=== PATIENT | female | born 1930 | race Two or more races ===

== ENCOUNTER 2019-09-19 05:31 | Inpatient (IN) | payer MEDICARE ==
--- NOTE | 2019-09-19 06:17 | ER Document Report ---
ED General - General Chief Complaint: Fever Stated Complaint: FEVER Time Seen by Provider: 09/19/19 06:16 Primary Care Provider: WILLA ALDRICH MD [Primary Care Provider] - Follow up as needed Mode of Arrival: Medic Information source: Patient, Emergency Med Personnel Cannot obtain history due to: Uncooperative, Other - possible dementia vs cultural divide TRAVEL OUTSIDE OF THE [place] IN LAST 30 DAYS: No - HPI Onset: Other - over the last few days Onset/Duration: Gradual Quality of pain: No pain Severity: Moderate Pain Level: Denies Associated symptoms: Fever, Weakness Exacerbated by: Denies Relieved by: Denies Similar symptoms previously: No Recently seen / treated by doctor: No Notes: 89 year old female with a history of DM, HTN, HLD who lives in a assisted here for fevers and weakness. The patient is hard of hearing and not the best h istorian but she says she feels weak and has had fevers. The patient is mildly hypoxic during my exam on room air and she is febrile. Patient not actively coughing but she says it hurts to urinate. - Related Data Allergies/Adverse Reactions: No Known Allergies Allergy (Verified 09/19/19 07:45) Home Medications: amlodipine - benazepril 5-20mg po daily. asa 81mg po daily. atorvastatin 40mg po daily. hctz 25mg po daily. metformin 500mg po daily. glipizide 5mg po bid. metoprolol 100mg po bid. kcl er 20meq bid. tylenol 325mg po prn pain Past Medical History - General Information source: Emergency Med Personnel - Social History Smoking Status: Never Smoker Chew tobacco use (# tins/day): No Frequency of alcohol use: None Drug Abuse: None Lives with: Senior Living Family History: Reviewed & Not Pertinent Patient has suicidal ideation: No Patient has homicidal ideation: No - Past Medical History Cardiac Medical History: Reports: Hx Hypercholesterolemia, Hx Hypertension Endocrine Medical History: Reports: Hx Diabetes Mellitus Type 2 Physical Exam - Vital signs Vitals: Temp Pulse Resp BP Pulse Ox 102.2 F H 102 H 19 117/55 L 93 09/19/19 05:43 09/19/19 05:43 09/19/19 05:43 09/19/19 05:43 09/19/19 05:43 - Notes Notes: GENERAL: Well-appearing, well-nourished and in no acute distress. Somewhat hard of hearing. HEAD: Atraumatic, normocephalic. EYES: Pupils equal round and reactive to light, extraocular movements intact, sclera anicteric, conjunctiva are normal. ENT: TMs normal, nares patent, oropharynx clear without exudates. Moist mucous membranes. NECK: Normal range of motion, supple without lymphadenopathy or JVD. LUNGS: Breath sounds clear to auscultation bilaterally and equal. No wheezes rales or rhonchi. HEART: Regular rate and rhythm without murmurs, rubs or gallops. ABDOMEN: Soft, nontender, normoactive bowel sounds. No guarding, no rebound. No masses appreciated. EXTREMITIES: Normal range of motion, no pitting or edema. No clubbing or cyanosis. NEUROLOGICAL: Cranial nerves II through XII grossly intact. Normal speech, normal gait. PSYCH: Normal mood, normal affect. SKIN: Warm, Dry, normal turgor, no rashes or lesions noted. Course - Re-evaluation Re-evalutation: 09/19/19 08:05 The patient meets sepsis criteria and her xray was read as right middle lob pneumonia. The patient was treated with fluids (1.5L NS) and Cefipime (per Hospitalist request) to cover pneumonia and possible UTI. Patient tested negative for the flu but UA looked questionable (urine culture pending). K is slightly low so will supp with 40meq of oral K. Patient's glucose us which could be from dehydration and her infectious process. Patient treated with fluids jemma ne for this. - Vital Signs Vital signs: Temp Pulse Resp BP Pulse Ox 99.3 F 102 H 19 92/54 L 94 09/19/19 07:36 09/19/19 05:43 09/19/19 07:36 09/19/19 07:36 09/19/19 07:36 - Laboratory Result Diagrams: 09/19/19 06:06 09/19/19 06:06 Laboratory results interpreted by me: 09/19/19 09/19/19 09/19/19 06:06 06:06 06:06 WBC 3.1 L Plt Count 147 L Lymph % (Auto) 6.5 L Bledsoe % (Auto) 1.7 L Absolute Lymphs (auto) 0.2 L Seg Neutrophils % 91.4 H VBG pH Sodium 130.6 L Potassium 3.3 L Chloride 94 L Glucose 261 H Lactic Acid 2.3 H Total Bilirubin 2.1 H AST 75 H Alkaline Phosphatase 144 H Albumin 3.4 L Urine Protein Urine Glucose (UA) Urine Blood Urine Urobilinogen 09/19/19 09/19/19 06:20 06:22 WBC Plt Count Lymph % (Auto) Bledsoe % (Auto) Absolute Lymphs (auto) Seg Neutrophils % VBG pH 7.48 H Sodium Potassium Chloride Glucose Lactic Acid Total Bilirubin AST Alkaline Phosphatase Albumin Urine Protein 100 H Urine Glucose (UA) >=500 H Urine Blood LARGE H Urine Urobilinogen 4.0 H Discharge - Discharge Clinical Impression: Pneumonia Qualifiers: Pneumonia type: due to unspecified organism Laterality: right Lung location: middle lobe of lung Qualified Code(s): J18.9 - Pneumonia, unspecified organism Sepsis Qualifiers: Sepsis type: sepsis due to unspecified organism Sepsis acute organ dysfunction status: unspecified Qualified Code(s): A41.9 - Sepsis, unspecified organism Condition: Stable Disposition: ADMITTED INPATIENT Admitting Provider: Maria D (Hospitalist) Unit Admitted: Telemetry Referrals: WILLA ALDRICH MD [Primary Care Provider] - Follow up as needed
[2019-09-19 06:25] LABS: ABSOLUTE LYMPHOCYTES (AUTO) 0.2 10^3/uL (0.5-4.7); ABSOLUTE MONOCYTES (AUTO) 0.1 10^3/uL (0.1-1.4); ABSOLUTE NEUT (AUTO) 2.9 10^3/uL (1.7-8.2); BASOPHILS % (AUTO) 0.2 % (0-2); EOSINOPHILS % (AUTO) 0.2 % (0-6); HEMATOCRIT 37.1 % (36.0-47.0); HEMOGLOBIN 12.3 g/dL (12.0-15.5); LYMPHOCYTES % (AUTO) 6.5 % (13-45); MEAN CORPUSCULAR HEMOGLOBIN 28.4 pg (27.0-33.4); MEAN CORPUSCULAR HGB CONC 33.1 g/dL (32.0-36.0); MEAN CORPUSCULAR VOLUME 86 fl (80-97); MONOCYTES % (AUTO) 1.7 % (3-13); PLATELET COUNT 147 10^3/uL (150-450); RED BLOOD COUNT 4.32 10^6/uL (3.72-5.28); SEGMENTED NEUTROPHILS % (AUTO) 91.4 % (42-78); TOTAL CELLS COUNTED % (AUTO) 100 %; WHITE BLOOD COUNT 3.1 10^3/uL (4.0-10.5)
[2019-09-19 06:34] LABS: APPEARANCE,URINE SLIGHTLY-CLOUDY; BILIRUBIN,URINE NEGATIVE (NEGATIVE); COLOR,URINE AMBER; GLUCOSE, URINE >=500 mg/dL (NEGATIVE); KETONES,URINE NEGATIVE (NEGATIVE); LEUKOCYTE ESTERASE,URINE NEGATIVE (NEGATIVE); NITRITE,URINE NEGATIVE (NEGATIVE); PROTEIN,URINE 100 mg/dL (NEGATIVE); URINE SPECIFIC GRAVITY 1.014
[2019-09-19 06:35] LABS: VENOUS BLOOD BASE EXCESS 2.6 mmol/L; VENOUS BLOOD PH 7.48 (7.30-7.42)
[2019-09-19 06:40] LABS: INTERNATIONAL RATION (INR) 1.06; PROTHROMBIN TIME 13.8 SEC (11.4-15.4)
[2019-09-19] MEDS ORDERED: NORMAL SALINE 1000 ML 1,000 ML IV ONE (06:45)
[2019-09-19 06:46] LABS: ALBUMIN 3.4 g/dL (3.5-5.0); ALKALINE PHOSPHATASE 144 U/L (38-126); ANION GAP 10 (5-19); ASPARTATE AMINO TRANSFERASE 75 U/L (14-36); BILIRUBIN,DIRECT 0.3 mg/dL (0.0-0.4); BILIRUBIN,TOTAL 2.1 mg/dL (0.2-1.3); BLOOD UREA NITROGEN 20 mg/dL (7-20); CALCIUM 8.9 mg/dL (8.4-10.2); CARBON DIOXIDE 27 mmol/L (22-30); CHLORIDE 94 mmol/L (98-107); GLUCOSE 261 mg/dL (75-110); POTASSIUM 3.3 mmol/L (3.6-5.0); TOTAL PROTEIN 6.4 g/dL (6.3-8.2)
[2019-09-19 07:09] LABS: A TYPE INFLUENZA AG NEGATIVE (NEGATIVE); B INFLUENZA AG NEGATIVE (NEGATIVE)
--- NOTE | 2019-09-19 07:42 | RADIOLOGY REPORT (SQ) ---
Chest single view on 09/19/2019 at 7:11 AM CLINICAL INDICATION: Pneumonia COMPARISON: None FINDINGS: Heart is upper limits normal for size. There is questionable medial right upper lung opacity versus artifact from overlying clavicle. If no old x-ray is available to document stability would recommend follow-up chest CT to ensure benign nature. Lungs are otherwise clear. Vascular calcification is noted in the aorta. Pulmonary vascularity is within normal limits. IMPRESSION: Possible medial right upper lung opacity, if no old x-ray is available to document long-term stability would recommend follow-up chest CT.
[2019-09-19] MEDS ORDERED: POTASSIUM CHLORIDE 20 MEQ PACKET PO ONE (08:06)
[2019-09-19] MEDS ORDERED: NORMAL SALINE 500 ML IV ONE (08:08)
[2019-09-19] MEDS ORDERED: IPRATROPIUM/ALBUTEROL 0.5-2.5 MG/3 ML AMPUL NEB PRN (08:36)
[2019-09-19] MEDS ORDERED: ACETAMINOPHEN 325 MG TABLET PO PRN (08:37)
[2019-09-19] MEDS ORDERED: CEFEPIME 2 GM/D5W RTU 2 GM/50 ML RTUPB IV ONE (09:00)
[2019-09-19] MEDS: CEFTRIAXONE 1 GM/D5W RTU 1 GM/50 ML RTUPB IV SCH (09:40)
--- NOTE | 2019-09-19 09:47 | EKG REPORT ---
SEVERITY:- NORMAL ECG - SINUS RHYTHM : Confirmed by: Himanshu Davalos 19-Sep-2019 09:46:39
--- NOTE | 2019-09-19 11:21 | RADIOLOGY REPORT (SQ) ---
EXAM DESCRIPTION: CT CHEST WITHOUT COMPLETED DATE/TIME: 09/19/2019 11:04 am REASON FOR STUDY: cough,?RUL opacity COMPARISON: None. TECHNIQUE: CT scan performed of the chest without intravenous contrast. Images reviewed with lung, soft tissue and bone windows. Reconstructed coronal and sagittal MPR images reviewed. All images st ored on PACS. All CT scanners at this facility use dose modulation, iterative reconstruction, and/or weight based d osing when appropriate to reduce radiation dose to as low as reasonably achievable (ALARA). [facility]: Dose Right [facility]: CareDose [facility]: Dose Right [facility]: Teradose 4D [facility]: Cortexa RADIATION DOSE: CT Rad equipment meets quality standard of care and radiation dose reduction techniq ues were employed. CTDIvol: 8.1 mGy. DLP: 280 mGy-cm. mGy. LIMITATIONS: Motion artifact. FINDINGS: LUNGS AND PLEURA: No masses, infiltrates, or pneumothorax. No pleural effusions or pleura l calcifications. HILAR AND MEDIASTINAL STRUCTURES: No identified masses or abnormal nodes. No obvious aneurysm. HEART AND VASCULAR STRUCTURES: Cardiomegaly. No pericardial effusion. UPPER ABDOMEN: No significant findings. Limited exam. THYROID AND OTHER SOFT TISSUES: No masses. No adenopathy. BONES: No significant finding. HARDWARE: None in the chest. OTHER: No other significant findings. IMPRESSION: No acute findings in the chest. TECHNICAL DOCUMENTATION: JOB ID: [id number] Quality ID # [id number]: Final reports with documentation of one or more dose reduction techniques (e.g., Au tomated exposure control, adjustment of the mA and/or kV according to patient size, use of iterative reconstruction technique) 2010 [employer]- All Rights Reserved Reading location - IP/workstation name: [email or web address]-
[2019-09-19] MEDS: HEPARIN SOD (PORCINE) 5,000 UNIT/ML 1 ML VIAL SUBCUT SCH ×2 (14:24→22:21)
[2019-09-19] MEDS ORDERED: DEXTROSE 40% GEL 15 GM TUBE PO PRN ×2 (16:22)
[2019-09-19] MEDS ORDERED: DEXTROSE 50%-WATER 25 GM/50 ML DISP.SYRIN IV PRN ×2 (16:22)
[2019-09-19] MEDS ORDERED: GLUCAGON,HUMAN RECOMB 1 MG INJ IM PRN (16:22)
--- NOTE | 2019-09-19 16:22 | PDOC H&P ---
History of Present Illness Admission Date/PCP: 09/19/19 08:18 WILLA ALDRICH MD Patient complains of: fever History of Present Illness: NOHELIA WAGONER is a 89 year old female past medical history of diabetes mellitus type 2, hypertension hyperlipidemia who was brought into the ER from skilled nursing due to fever and weakness. Patient is a poor historian and also has very poor hearing. Upon encounter, she appears comfortable. She does say that she has been having cough in the past few days. Denies chest pain. In the ER, work-up was remarkable for a right upper lobe opacity, pyuria and bacteriuria. She also had elevated lactic acid. She was also found to be febrile in the ER. Denies chest pain or shortness of breath. Past Medical History Cardiac Medical History: Reports: Hyperlipidema, Hypertension Endocrine Medical History: Reports: Diabetes Mellitus Type 2 Social History Lives with: Residential Smoking Status: Never Smoker Electronic Cigarette use?: No Family History Family History: Reviewed & Not Pertinent Parental Family History Reviewed: Yes - No premature CAD Children Family History Reviewed: No Sibling(s) Family History Reviewed.: No Medication/Allergy Home Medications: Amlodipine Besylate/Benazepril [Amlodipine-Benazepril 5-20 mg] 1 cap PO DAILY 09/19/19 Aspirin [Aspirin 81 mg Chewable Tablet] 81 mg PO DAILY 09/19/19 Atorvastatin Calcium [Lipitor 40 mg Tablet] 40 mg PO QHS 09/19/19 Glipizide [Glucotrol 5 mg Tablet] 5 mg PO BID 09/19/19 Hydrochlorothiazide [Hydrodiuril 25 mg Tablet] 25 mg PO DAILY 09/19/19 Metformin HCl [Metformin HCl ER] 500 mg PO QPM 09/19/19 Metoprolol Tartrate [Lopressor 100 mg Tablet] 100 mg PO Q12 09/19/19 Potassium Chloride [Klor-Con 10 Meq Tablet ER] 20 meq PO BID 09/19/19 Allergies/Adverse Reactions: No Known Allergies Allergy (Verified 09/19/19 10:26) Review of Systems All systems: reviewed and no additional remarkable complaints except as stated - As mentioned in HPI Physical Exam Vital Signs: Temp Pulse Resp BP Pulse Ox 99.3 F 102 H 19 92/54 L 94 09/19/19 07:36 09/19/19 05:43 09/19/19 07:36 09/19/19 07:36 09/19/19 07:36 Intake & Output 09/18/19 09/19/19 09/20/19 06:59 06:59 06:59 Weight 129 lb General appearance: PRESENT: no acute distress, well-developed, well-nourished Head exam: PRESENT: atraumatic, normocephalic Eye exam: PRESENT: conjunctiva pink, EOMI, PERRLA. ABSENT: scleral icterus Ear exam: PRESENT: normal external ear exam Mouth exam: PRESENT: moist, tongue midline Neck exam: ABSENT: carotid bruit, JVD, lymphadenopathy, thyromegaly Respiratory exam: PRESENT: rhonchi. ABSENT: rales, wheezes Cardiovascular exam: PRESENT: RRR. ABSENT: diastolic murmur, rubs, systolic murmur Pulses: PRESENT: normal dorsalis pedis pul GI/Abdominal exam: PRESENT: normal bowel sounds, soft. ABSENT: distended, guarding, mass, organolmegaly, rebound, tenderness Rectal exam: PRESENT: deferred Neurological exam: PRESENT: alert, awake, CN II-XII grossly intact. ABSENT: motor sensory deficit Results Laboratory Results: 09/19/19 06:06 09/19/19 06:06 09/19/19 09/19/19 09/19/19 06:06 06:06 06:06 WBC 3.1 L RBC 4.32 Hgb 12.3 Hct 37.1 MCV 86 MCH 28.4 MCHC 33.1 RDW 14.0 Plt Count 147 L Seg Neutrophils % 91.4 H VBG pH VBG pCO2 VBG HCO3 VBG Base Excess Sodium 130.6 L Potassium 3.3 L Chloride 94 L Carbon Dioxide 27 Anion Gap 10 BUN 20 Creatinine 0.54 Est GFR ( Amer) > 60 Glucose 261 H Lactic Acid 2.3 H Calcium 8.9 Total Bilirubin 2.1 H AST 75 H Alkaline Phosphatase 144 H Total Protein 6.4 Albumin 3.4 L Urine Color Urine Appearance Urine pH Ur Specific [place] Urine Protein Urine Glucose (UA) Urine Ketones Urine Blood Urine Nitrite Ur Leukocyte Esterase Urine WBC (Auto) Urine RBC (Auto) 09/19/19 09/19/19 06:20 06:22 WBC RBC Hgb Hct MCV MCH MCHC RDW Plt Count Seg Neutrophils % VBG pH 7.48 H VBG pCO2 36.0 VBG HCO3 26.0 VBG Base Excess 2.6 Sodium Potassium Chloride Carbon Dioxide Anion Gap BUN Creatinine Est GFR ( Amer) Glucose Lactic Acid Calcium Total Bilirubin AST Alkaline Phosphatase Total Protein Albumin Urine Color KING Urine Appearance SLIGHTLY-CLOUDY Urine pH 6.0 Ur Specific [place] 1.014 Urine Protein 100 H Urine Glucose (UA) >=500 H Urine Ketones NEGATIVE Urine Blood LARGE H Urine Nitrite NEGATIVE Ur Leukocyte Esterase NEGATIVE Urine WBC (Auto) 9 Urine RBC (Auto) 10 Impressions: Chest X-Ray 09/19/19 06:26 IMPRESSION: Possible medial right upper lung opacity, if no old x-ray is available to document long-term stability would recommend follow-up chest CT. Assessment and Plan - Diagnosis (1) Pneumonia Qualifiers: Pneumonia type: due to unspecified organism Laterality: right Lung location: middle lobe of lung Qualified Code(s): J18.9 - Pneumonia, unspecified organism Is this a current diagnosis for this admission?: Yes Plan: Patient presents with cough and fever and weakness. Chest x-ray shows right upper lobe opacity. No previous prior chest x-rays on record. Will pursue a chest CT to further assess this infiltrate. Start patient on antibiotics and breathing treatments. (2) UTI (urinary tract infection) Is this a current diagnosis for this admission?: Yes Plan: Will be started empirically IV antibiotics. Also send for urine culture. (3) Lactic acidosis Is this a current diagnosis for this admission?: Yes Plan: The patient IV fluids. Repeat lactic acid. (4) Hypertension Is this a current diagnosis for this admission?: Yes (5) Diabetes mellitus type 2 in nonobese Is this a current diagnosis for this admission?: Yes - Time Time Spent with patient: 25-34 minutes
[2019-09-19 16:42] LABS: ANION GAP 8 (5-19); BLOOD UREA NITROGEN 19 mg/dL (7-20); CALCIUM 8.1 mg/dL (8.4-10.2); CARBON DIOXIDE 23 mmol/L (22-30); CHLORIDE 100 mmol/L (98-107)
[2019-09-19 16:51] LABS: POTASSIUM 4.3 mmol/L (3.6-5.0)
[2019-09-19 16:53] LABS: GLUCOSE 462 mg/dL (75-110)
[2019-09-19] MEDS: NORMAL SALINE 1000 ML 1,000 ML IV PRN (18:00)
[2019-09-19] MEDS: INSULIN LISPRO 100 UNIT/ML 3 ML VIAL SUBCUT SCH ×2 (18:30→22:22)
[2019-09-19] MEDS ORDERED: INSULIN LISPRO 100 UNIT/ML 3 ML VIAL SUBCUT SCH (22:00)
[2019-09-19] MEDS ORDERED: INSULIN GLARGINE,HUM.REC.ANLOG 1,000 UNIT/10 ML VIAL (PYX) SUBCUT ONE (22:19)
[2019-09-19] MEDS: INSULIN GLARGINE,HUM.REC.ANLOG 1,000 UNIT/10 ML VIAL SUBCUT SCH (22:22)
[2019-09-20] MEDS: HEPARIN SOD (PORCINE) 5,000 UNIT/ML 1 ML VIAL SUBCUT SCH ×3 (05:50→21:28)
[2019-09-20 08:04] LABS: HEMATOCRIT 32.3 % (36.0-47.0); HEMOGLOBIN 10.8 g/dL (12.0-15.5); MEAN CORPUSCULAR HEMOGLOBIN 28.5 pg (27.0-33.4); MEAN CORPUSCULAR HGB CONC 33.4 g/dL (32.0-36.0); MEAN CORPUSCULAR VOLUME 86 fl (80-97); PLATELET COUNT 125 10^3/uL (150-450); RED BLOOD COUNT 3.78 10^6/uL (3.72-5.28); RED CELL DISTRIBUTION WIDTH 14.2 % (11.5-14.0)
[2019-09-20 08:10] LABS: WHITE BLOOD COUNT 13.1 10^3/uL (4.0-10.5)
[2019-09-20 08:19] LABS: ANION GAP 7 (5-19); BLOOD UREA NITROGEN 15 mg/dL (7-20); CARBON DIOXIDE 25 mmol/L (22-30); CHLORIDE 104 mmol/L (98-107); GLUCOSE 243 mg/dL (75-110); POTASSIUM 3.4 mmol/L (3.6-5.0)
[2019-09-20] MEDS: INSULIN LISPRO 100 UNIT/ML 3 ML VIAL SUBCUT SCH ×4 (08:27→21:38)
[2019-09-20 09:04] LABS: ABSOLUTE MONOCYTES # (MANUAL) 0.7 10^3/uL (0.1-1.4); BAND NEUTROPHILS % (MANUAL) 6 % (3-5); BASOPHILS % (MANUAL) 0 % (0-2); EOSINOPHILS % (MANUAL) 0 % (0-6); LYMPHOCYTES % (MANUAL) 3 % (13-45); MONOCYTES % (MANUAL) 5 % (3-13); SEGMENTED NEUTROPHILS % (MAN) 81 % (42-78); TOTAL CELLS COUNTED 100
[2019-09-20 09:05] LABS: ANISOCYTOSIS SLIGHT
[2019-09-20 09:07] LABS: BURR CELLS SLIGHT
[2019-09-20 09:08] LABS: OVALOCYTES SLIGHT
[2019-09-20 09:09] LABS: PLATELET COMMENT DECREASED
[2019-09-20 09:10] LABS: SCHISTOCYTES SLIGHT
[2019-09-20] MEDS ORDERED: POTASSIUM CHLORIDE 10 MEQ TABLET.ER PO ONE (09:30)
[2019-09-20] MEDS: CEFTRIAXONE 1 GM/D5W RTU 1 GM/50 ML RTUPB IV SCH (10:11)
[2019-09-20] MEDS ORDERED: INFLUENZA QUAD (6MOS+) 2019-20 VAC 0.5 ML SYR IM ONE (14:13)
[2019-09-20] MEDS: NORMAL SALINE 1000 ML 1,000 ML IV PRN (15:31)
--- NOTE | 2019-09-20 15:39 | PDOC PROGRESS REPORT ---
Subjective Progress Note for:: 09/20/19 Subjective:: NOHELIA WAGONER is a 89 year old female past medical history of diabetes mellitus type 2, hypertension hyperlipidemia who was brought into the ER from senior care due to fever and weakness. She was admitted for possible sepsis secondary to questionable right lung pneumonia versus UTI. Chest CT was pursued and did not show evidence of pneumonia. UA was consistent with UTI. Blood cultures and urine culture are growing gram-negative rods. Upon encounter this morning, she appears more awake and conversant. She denies acute complaints. Denies chest pain or shortness of breath. Reason For Visit: SEPSIS,PNEUMONIA,HYPOKALEMIA Physical Exam Vital Signs: Temp Pulse Resp BP Pulse Ox 99.4 F 88 18 139/82 H 94 09/20/19 12:00 09/20/19 14:00 09/20/19 12:00 09/20/19 12:00 09/20/19 12:00 Intake & Output 09/19/19 09/20/19 09/21/19 06:59 06:59 06:59 Intake Total 1625 1484 Balance 1625 1484 Weight 129 lb General appearance: PRESENT: no acute distress, well-developed, well-nourished Head exam: PRESENT: atraumatic, normocephalic Eye exam: PRESENT: conjunctiva pink, EOMI, PERRLA. ABSENT: scleral icterus Ear exam: PRESENT: normal external ear exam Mouth exam: PRESENT: moist, tongue midline Neck exam: ABSENT: carotid bruit, JVD, lymphadenopathy, thyromegaly Respiratory exam: PRESENT: clear to auscultation batsheva. ABSENT: rales, rhonchi, wheezes Cardiovascular exam: PRESENT: RRR. ABSENT: diastolic murmur, rubs, systolic murmur Pulses: PRESENT: normal dorsalis pedis pul GI/Abdominal exam: PRESENT: normal bowel sounds, soft. ABSENT: distended, guarding, mass, organolmegaly, rebound, tenderness Rectal exam: PRESENT: deferred Extremities exam: PRESENT: full ROM. ABSENT: calf tenderness, clubbing, pedal edema Neurological exam: PRESENT: alert, awake, oriented to person, oriented to place, CN II-XII grossly intact. ABSENT: motor sensory deficit Results Laboratory Results: 09/20/19 07:52 09/20/19 07:52 09/19/19 09/20/19 09/20/19 16:15 07:52 07:52 WBC 13.1 H D RBC 3.78 Hgb 10.8 L Hct 32.3 L MCV 86 MCH 28.5 MCHC 33.4 RDW 14.2 H Plt Count 125 L Seg Neutrophils % Not Reportable Sodium 131.1 L 135.6 L Potassium 4.3 D 3.4 L Chloride 100 104 Carbon Dioxide 23 25 Anion Gap 8 7 BUN 19 15 Creatinine 0.52 0.46 L Est GFR ( Amer) > 60 > 60 Glucose 462 H* 243 H Lactic Acid Calcium 8.1 L 8.0 L 09/20/19 07:52 WBC RBC Hgb Hct MCV MCH MCHC RDW Plt Count Seg Neutrophils % Sodium Potassium Chloride Carbon Dioxide Anion Gap BUN Creatinine Est GFR ( Amer) Glucose Lactic Acid 0.8 Calcium 09/19/19 06:06 Blood Blood Culture (PCR) - Final Escherichia Coli 09/19/19 06:06 NT-Pro-B Natriuret Pep 1310 H Impressions: Chest X-Ray 09/19/19 06:26 IMPRESSION: Possible medial right upper lung opacity, if no old x-ray is available to document long-term stability would recommend follow-up chest CT. Chest CT 09/19/19 08:36 IMPRESSION: No acute findings in the chest. Assessment and Plan - Diagnosis (1) Sepsis Qualifiers: Sepsis type: sepsis due to unspecified organism Sepsis acute organ dysfunction status: unspecified Qualified Code(s): A41.9 - Sepsis, unspecified organism Is this a current diagnosis for this admission?: Yes Plan: Secondary to urinary tract infection. Continue IV Rocephin as she appears to be clinically improving on current antibiotic. Blood cultures and urine culture are growing gram-negative rods. (2) UTI (urinary tract infection) Is this a current diagnosis for this admission?: Yes Plan: As per #1. (3) Lactic acidosis Is this a current diagnosis for this admission?: Yes Plan: Resolved. (4) Hypertension Is this a current diagnosis for this admission?: Yes Plan: Resume metoprolol and hydrochlorothiazide today. (5) Diabetes mellitus type 2 in nonobese Is this a current diagnosis for this admission?: Yes Plan: Resume glipizide and metformin. - Time Time Spent with patient: 25-34 minutes
[2019-09-20] MEDS: METFORMIN HCL 500 MG TABLET PO SCH (16:48)
[2019-09-20] MEDS: POTASSIUM CHLORIDE 10 MEQ TABLET.ER PO SCH (18:00)
[2019-09-20] MEDS ORDERED: (PENDING PHARMACY ID) (Metformin Hcl [Metformin Hcl Er] 500 MG) PO SCH (18:00)
[2019-09-20] MEDS: GLIPIZIDE 5 MG TABLET PO SCH (18:00)
[2019-09-20] MEDS ORDERED: DILTIAZEM HCL/D5W 125 MG/125 ML RTUINJ IV PRN (19:21)
[2019-09-20] MEDS: METOPROLOL TARTRATE PF/INJ 5 MG/5 ML SDV IV PRN (19:46)
[2019-09-20 21:17] LABS: ANION GAP 10 (5-19); BLOOD UREA NITROGEN 13 mg/dL (7-20); CALCIUM 8.1 mg/dL (8.4-10.2); CARBON DIOXIDE 20 mmol/L (22-30); CHLORIDE 103 mmol/L (98-107); CREATINE KINASE 62 U/L (30-135); GLUCOSE 285 mg/dL (75-110); POTASSIUM 4.2 mmol/L (3.6-5.0)
[2019-09-20 21:22] LABS: CREATINE KINASE MB 1.15 ng/mL (<4.55)
[2019-09-20 21:26] LABS: TROPONIN I 0.078 ng/mL
[2019-09-20] MEDS: ATORVASTATIN CALCIUM 40 MG TABLET PO SCH (21:37)
[2019-09-20] MEDS: METOPROLOL TARTRATE 100 MG TABLET PO SCH (21:38)
[2019-09-20] MEDS ORDERED: ERTAPENEM SODIUM 1 GM in NORMAL SALINE 50 ML IV SCH (22:00)
[2019-09-20] MEDS: INSULIN GLARGINE,HUM.REC.ANLOG 1,000 UNIT/10 ML VIAL SUBCUT SCH (22:23)
[2019-09-21 03:15] LABS: CREATINE KINASE MB 0.69 ng/mL (<4.55); TROPONIN I 0.064 ng/mL
[2019-09-21] MEDS: HEPARIN SOD (PORCINE) 5,000 UNIT/ML 1 ML VIAL SUBCUT SCH ×3 (05:43→22:42)
[2019-09-21] MEDS: METFORMIN HCL 500 MG TABLET PO SCH ×2 (08:57→15:30)
[2019-09-21] MEDS: INSULIN LISPRO 100 UNIT/ML 3 ML VIAL SUBCUT SCH ×4 (08:57→22:43)
[2019-09-21] MEDS: DILTIAZEM HCL 30 MG TABLET PO SCH ×3 (09:09→22:42)
[2019-09-21] MEDS: ASPIRIN 81 MG TABLET, CHEWABLE PO SCH (09:09)
[2019-09-21] MEDS: POTASSIUM CHLORIDE 10 MEQ TABLET.ER PO SCH ×2 (09:09→17:40)
[2019-09-21] MEDS: METOPROLOL TARTRATE 100 MG TABLET PO SCH ×2 (09:10→22:43)
[2019-09-21] MEDS: GLIPIZIDE 5 MG TABLET PO SCH ×2 (09:10→17:39)
[2019-09-21] MEDS: CEFTRIAXONE 1 GM/D5W RTU 1 GM/50 ML RTUPB IV SCH (09:11)
[2019-09-21] MEDS: HYDROCHLOROTHIAZIDE 25 MG TABLET PO SCH (09:11)
[2019-09-21 09:49] LABS: ABSOLUTE LYMPHOCYTES (AUTO) 1.4 10^3/uL (0.5-4.7); ABSOLUTE MONOCYTES (AUTO) 1.1 10^3/uL (0.1-1.4); BASOPHILS % (AUTO) 0.3 % (0-2); EOSINOPHILS % (AUTO) 0.2 % (0-6); HEMATOCRIT 32.6 % (36.0-47.0); HEMOGLOBIN 10.8 g/dL (12.0-15.5); MEAN CORPUSCULAR HEMOGLOBIN 28.4 pg (27.0-33.4); MEAN CORPUSCULAR HGB CONC 33.3 g/dL (32.0-36.0); MEAN CORPUSCULAR VOLUME 85 fl (80-97); PLATELET COUNT 154 10^3/uL (150-450); RED BLOOD COUNT 3.81 10^6/uL (3.72-5.28); RED CELL DISTRIBUTION WIDTH 14.5 % (11.5-14.0); SEGMENTED NEUTROPHILS % (AUTO) 79.5 % (42-78); TOTAL CELLS COUNTED % (AUTO) 100 %; WHITE BLOOD COUNT 12.5 10^3/uL (4.0-10.5)
[2019-09-21 10:35] LABS: CREATINE KINASE MB 0.58 ng/mL (<4.55); TROPONIN I 0.038 ng/mL
[2019-09-21 10:48] LABS: ANION GAP 7 (5-19); BLOOD UREA NITROGEN 14 mg/dL (7-20); CARBON DIOXIDE 23 mmol/L (22-30); CHLORIDE 105 mmol/L (98-107); GLUCOSE 236 mg/dL (75-110); POTASSIUM 4.4 mmol/L (3.6-5.0)
[2019-09-21 11:15] LABS: FREE T3 1.77 pg/mL (2.77-5.27); FREE T4 (FREE THYROXINE) 1.59 ng/dL (0.78-2.19)
[2019-09-21 11:29] LABS: THYROID STIMULATING HORMONE 1.27 uIU/mL (0.47-4.68)
[2019-09-21] MEDS: METOPROLOL TARTRATE PF/INJ 5 MG/5 ML SDV IV PRN (15:35)
[2019-09-21] MEDS ORDERED: HYDRALAZINE HCL INJ/PF 20 MG/1 ML SDV IV PRN (16:37)
--- NOTE | 2019-09-21 17:06 | PDOC PROGRESS REPORT ---
Subjective Progress Note for:: 09/21/19 Subjective:: NOHELIA WAGONER is a 89 year old female past medical history of diabetes mellitus type 2, hypertension hyperlipidemia who was [facility] from [facility] due to fever and weakness. She was admitted for possible sepsis secondary to questionable right lung pneumonia versus UTI. Chest CT was pursued and did not show evidence of pneumonia. UA was consistent with UTI. Blood cultures and urine culture are growing gram-negative rods. 09/20: Upon encounter this morning, she appears more awake and conversant. She denies acute complaints. Denies chest pain or shortness of breath. 09/21: Patient went into A. fib with RVR in the 150s last night patient was s tarted on Cardizem drip. Otherwise, she reports she continues to feel better upon encounter this morning. Denies chest pain or shortness of breath. She has converted to normal sinus rhythm. Will wean off Cardizem drip today. Reason For Visit: AFIB Physical Exam Vital Signs: Temp Pulse Resp BP Pulse Ox 98.1 F 69 18 171/73 H 95 09/21/19 04:58 09/21/19 08:00 09/21/19 04:58 09/21/19 08:00 09/21/19 04:58 Intake & Output 09/20/19 09/21/19 09/22/19 06:59 06:59 06:59 Intake Total 1625 1524 Output Total 0 Balance 1625 1524 Weight 127 lb 3.307 oz General appearance: PRESENT: no acute distress, well-developed, well-nourished Head exam: PRESENT: atraumatic, normocephalic Eye exam: PRESENT: conjunctiva pink, EOMI, PERRLA. ABSENT: scleral icterus Ear exam: PRESENT: normal external ear exam Mouth exam: PRESENT: moist, tongue midline Neck exam: ABSENT: carotid bruit, JVD, lymphadenopathy, thyromegaly Respiratory exam: PRESENT: rhonchi. ABSENT: rales, wheezes Cardiovascular exam: PRESENT: RRR. ABSENT: diastolic murmur, rubs, systolic murmur Vascular exam: PRESENT: normal capillary refill GI/Abdominal exam: PRESENT: normal bowel sounds, soft. ABSENT: distended, guarding, mass, organolmegaly, rebound, tenderness Rectal exam: PRESENT: deferred Neurological exam: PRESENT: alert, awake, oriented to person, oriented to place, CN II-XII grossly intact. ABSENT: motor sensory deficit Results Laboratory Results: 09/20/19 07:52 09/20/19 20:45 09/20/19 09/20/19 09/20/19 07:52 07:52 20:45 WBC 13.1 H D RBC 3.78 Hgb 10.8 L Hct 32.3 L MCV 86 MCH 28.5 MCHC 33.4 RDW 14.2 H Plt Count 125 L Sodium 132.5 L Potassium 4.2 Chloride 103 Carbon Dioxide 20 L Anion Gap 10 BUN 13 Creatinine 0.36 L Est GFR ( Amer) > 60 Glucose 285 H Lactic Acid 0.8 Calcium 8.1 L Magnesium 2.1 09/19/19 06:06 Blood Blood Culture (PCR) - Final Escherichia Coli 09/19/19 06:20 Catheterized Urine Urine Culture - Final Escherichia Coli 09/19/19 09/20/19 09/20/19 06:06 20:45 20:45 Creatine Kinase 62 CK-MB (CK-2) 1.15 Troponin I 0.078 NT-Pro-B Natriuret Pep 1310 H 09/21/19 09/21/19 02:35 02:35 Creatine Kinase 34 CK-MB (CK-2) 0.69 Troponin I 0.064 NT-Pro-B Natriuret Pep Impressions: Chest X-Ray 09/19/19 06:26 IMPRESSION: Possible medial right upper lung opacity, if no old x-ray is available to document long-term stability would recommend follow-up chest CT. Chest CT 09/19/19 08:36 IMPRESSION: No acute findings in the chest. Assessment and Plan - Diagnosis (1) Atrial fibrillation with rapid ventricular response Is this a current diagnosis for this admission?: Yes Plan: converted to normal sinus rhythm. Discontinue Cardizem drip. Continue oral Lopressor. We will add p.o. Cardizem. (2) Sepsis Qualifiers: Sepsis type: sepsis due to unspecified organism Sepsis acute organ dysfunction status: unspecified Qualified Code(s): A41.9 - Sepsis, unspecified organism Is this a current diagnosis for this admission?: Yes Plan: Secondary to urinary tract infection. Continue IV Rocephin as she appears to be clinically improving on current antibiotic. Blood cultures and urine culture grew pansensitive E. coli. (3) UTI (urinary tract infection) Is this a current diagnosis for this admission?: Yes Plan: As per #1. (4) Lactic acidosis Is this a current diagnosis for this admission?: Yes Plan: Resolved. (5) Hypertension Is this a current diagnosis for this admission?: Yes Plan: Continue metoprolol and hydrochlorothiazide. (6) Diabetes mellitus type 2 in nonobese Is this a current diagnosis for this admission?: Yes Plan: Resumed glipizide and metformin. - Time Time Spent with patient: 25-34 minutes
--- NOTE | 2019-09-21 19:38 | PDOC CONSULTATION ---
Consultation-Blank Consultation: CARDIOLOGY CONSULTATION by Dr. Katiana Neri on 09/21/2019. Patient seen at 3:00 PM. 50 minutes spent with the patient with more than 50% of time spent in direct patient care. Also since the patient's dementia she is not able to give a history. Obtained from the attending physician on the case and from the patient's current medical records. REASON FOR CONSULTATION: New onset atrial fibrillation. CONSULT REQUESTING PHYSICIAN: Dr[facility] Alvaro [facility], [facility]. HISTORY OF PRESENT ILLNESS: Patient is a 89-year-old [place] female with history of hypertension hyperlipidemia and dementia admitted with fever and was diagnosed with sepsis. Initially she was thought to have pneumonia, but the CT scan did not show this. The patient subsequently ruled in for a urinary tract infection. The patient was treated for this and went into atrial fibrillation with rapid ventricular response. She was treated with IV Cardizem infusion and converted to sinus rhythm. She is now on oral Cardizem and remains in sinus rhythm. The patient apart from being confused does not appear to be in any acute distress. She is moves all 4 extremities. There is no ventricular arrhythmia seen on the monitor. Past Medical History Cardiac Medical History: Reports: Hyperlipidema, Hypertension Endocrine Medical History: Reports: Diabetes Mellitus Type 2 Social History Lives with: Usp Smoking Status: Never Smoker Electronic Cigarette use?: No Family History Family History: Reviewed & Not Pertinent Parental Family History Reviewed: Yes - No premature CAD Children Family History Reviewed: No Sibling(s) Family History Reviewed.: No Medication/Allergy Home Medications: Amlodipine Besylate/Benazepril [Amlodipine-Benazepril 5-20 mg] 1 cap PO DAILY 09/19/19 Aspirin [Aspirin 81 mg Chewable Tablet] 81 mg PO DAILY 09/19/19 Atorvastatin Calcium [Lipitor 40 mg Tablet] 40 mg PO QHS 09/19/19 Glipizide [Glucotrol 5 mg Tablet] 5 mg PO BID 09/19/19 Hydrochlorothiazide [Hydrodiuril 25 mg Tablet] 25 mg PO DAILY 09/19/19 Metformin HCl [Metformin HCl ER] 500 mg PO QPM 09/19/19 Metoprolol Tartrate [Lopressor 100 mg Tablet] 100 mg PO Q12 09/19/19 Potassium Chloride [Klor-Con 10 Meq Tablet ER] 20 meq PO BID 09/19/19 Allergies/Adverse Reactions: No Known Allergies Allergy (Verified 09/19/19 10:26) RESUSCITATION STATUS: The patient is a full code. Ms. Randy St is the patient's surrogate healthcare decision maker. Review of Systems unable to obtain due to patient's mental status. Patient's family not around. Current Medications Acetaminophen (Tylenol 325 Mg Tablet) 650 mg PO Q4HP PRN PRN Reason: for pain or fever Stop: 10/19/19 08:36 Albuterol/Ipratropium (Duoneb 3 Ml Ampul) 3 ml NEB RTQ6HP PRN PRN Reason: SHORTNESS OF BREATH Stop: 10/19/19 08:35 Aspirin (Aspirin 81 Mg Chewable Tablet) 81 mg PO DAILY [facility] Stop: 10/21/19 09:59 Last Admin: 09/21/19 09:09 Dose: 81 mg Documented by: Atorvastatin Calcium (Lipitor 40 Mg Tablet) 40 mg PO QHS [facility] Stop: 10/20/19 21:59 Last Admin: 09/20/19 21:37 Dose: 40 mg Documented by: Dextrose (Dextrose Inj 50% Syringe (25 Gm/50 Ml)) 12.5 gm IV PRN PRN; Protocol PRN Reason: FOR BG 50-69 IN ALERT PATIENT Stop: 10/19/19 16:21 Dextrose (Dextrose Inj 50% Syringe (25 Gm/50 Ml)) 25 gm IV PRN PRN; Protocol PRN Reason: PER PROTOCOL Stop: 10/19/19 16:21 Diltiazem HCl (Cardizem 30 Mg Tablet) 60 mg PO Q8 [facility] Stop: 10/21/19 21:59 Glipizide (Glucotrol 5 Mg Tablet) 5 mg PO BID [facility] Stop: 10/20/19 17:59 Last Admin: 09/21/19 17:39 Dose: 5 mg Documented by: Glucagon (Glucagen Inj 1 Mg Vial) 1 mg IM PRN PRN; Protocol PRN Reason: Evaluate for BG < 70 Stop: 10/19/19 16:21 Glucose (Glutose 40% Gel 15 Gm Tube) 15 gm PO PRN PRN; Protocol PRN Reason: FOR BG 50-69 IN ALERT PATIENT Stop: 10/19/19 16:21 Glucose (Glutose 40% Gel 15 Gm Tube) 30 gm PO PRN PRN; Protocol PRN Reason: FOR BG < 50 IN ALERT PATIENT Stop: 10/19/19 16:21 Heparin Sodium (Porcine) (Heparin Inj 5,000 Units/Ml 1 Ml Vial) 5,000 unit SUBCUT Q8 [facility] Stop: 10/19/19 13:59 Last Admin: 09/21/19 15:31 Dose: Not Given Documented by: Hydralazine HCl (Apresoline Inj/Pf 20 Mg/1 Ml Sdv) 10 mg IV Q4HP PRN PRN Reason: SYSTOLIC>170 OR DIASTOLIC>100 Stop: 10/21/19 16:36 Hydrochlorothiazide (Hydrodiuril 25 Mg Tablet) 25 mg PO DAILY [facility] Stop: 10/21/19 09:59 Last Admin: 09/21/19 09:11 Dose: 25 mg Documented by: Ceftriaxone Sodium/Dextrose (Rocephin Rtu 1 Gm/D5w 50 Ml Premix) 1 gm in 50 mls @ 100 mls/hr IV DAILY [facility] Stop: 09/26/19 09:59 Last Infusion: 09/21/19 09:53 Dose: Infused Documented by: Insulin Glargine (Lantus Insulin 100 Unit/1 Ml 10 Ml) 10 unit SUBCUT QHS [facility] Stop: 10/19/19 21:59 Last Admin: 09/20/19 22:23 Dose: 10 unit Documented by: Insulin Human Lispro (Humalog Insulin 100 Unit/1 Ml 3 Ml Vial) 0 - 12 unit SUBCUT [facility]; Protocol Stop: 10/19/19 18:59 Last Admin: 09/21/19 17:39 Dose: 4 unit Documented by: Metformin HCl (Glucophage 500 Mg Tablet) 250 mg PO BIDACBS [facility] Stop: 10/20/19 15:59 Last Admin: 09/21/19 15:30 Dose: 250 mg Documented by: Metoprolol Tartrate (Lopressor 100 Mg Tablet) 100 mg PO Q12 [facility] Stop: 10/20/19 21:59 Last Admin: 09/21/19 09:10 Dose: 100 mg Documented by: Metoprolol Tartrate (Lopressor Inj/Pf 5 Mg/5 Ml Sdv) 2.5 mg IV Q6HP PRN PRN Reason: hr>110 Stop: 10/20/19 19:33 Last Admin: 09/21/19 15:35 Dose: 2.5 mg Documented by: Potassium Chloride (Klor-Con 10 Meq Tablet Er) 20 meq PO BID [facility] Stop: 10/20/19 17:59 Last Admin: 09/21/19 17:40 Dose: Not Given Documented by: Discontinued Medications Diltiazem HCl (Cardizem 30 Mg Tablet) 30 mg PO Q8 [facility] Stop: 10/21/19 08:44 Last Admin: 09/21/19 15:30 Dose: 30 mg Documented by: Sodium Chloride (Nacl 0.9% 1000 Ml Iv Soln) 1,000 mls @ 0 mls/hr IV BOLUS ONE Stop: 09/19/19 06:46 Last Infusion: 09/19/19 08:20 Dose: Infused Documented by: Cefepime HCl (Maxipime Rtu 2 Gm-D5w 50 Ml Premix Bag) 2 gm in 50 mls @ 100 mls/hr IV NOW ONE Stop: 09/19/19 09:29 Last Infusion: 09/19/19 10:23 Dose: Infused Documented by: Sodium Chloride (Nacl 0.9% 500 Ml Iv Soln) 500 mls @ 0 mls/hr IV NOW ONE Stop: 09/19/19 08:09 Last Infusion: 09/19/19 10:03 Dose: Infused Documented by: Sodium Chloride (Nacl 0.9% 1000 Ml Iv Soln) 1,000 mls @ 50 mls/hr IV CONTINUOUS PRN PRN Reason: THIS MED IS NOT "PRN" Stop: 10/19/19 16:21 Last Infusion: 09/21/19 09:00 Dose: Infused Documented by: Diltiazem HCl (Cardizem Rtu Inj 125 Mg-D5w 125 Ml Premix) 125 mg in 125 mls @ 0 mls/hr IV CONTINUOUS PRN; Protocol PRN Reason: THIS MED IS NOT "PRN" Stop: 10/20/19 19:20 Ertapenem 1 gm/ Sodium (Chloride) 50 mls @ 100 mls/hr IV QHS [facility] Stop: 09/27/19 21:59 Last Infusion: 09/21/19 09:00 Dose: Infused Documented by: Influenza Virus Vaccine Quadrival (Flulaval Quad Vac 0.5 Ml Syr) 0.5 ml IM .ONCE ONE Stop: 09/20/19 14:14 Insulin Glargine (Lantus (Pyxis) Insulin 100 Unit/1 Ml 10 Ml) Confirm Administered Dose 1 unit SUBCUT .STK-MED ONE Stop: 09/19/19 22:20 Last Admin: 09/19/19 22:48 Dose: Not Given Documented by: Insulin Human Lispro (Humalog Insulin 100 Unit/1 Ml 3 Ml Vial) 0 - 12 unit SUBCUT [facility]; Protocol Stop: 10/19/19 21:59 Potassium Chloride (Potassium Chloride 20 Meq Packet) 40 meq PO NOW ONE Stop: 09/19/19 08:07 Last Admin: 09/19/19 09:27 Dose: 40 meq Documented by: Potassium Chloride (Klor-Con 10 Meq Tablet Er) 40 meq PO NOW ONE Stop: 09/20/19 09:31 Last Admin: 09/20/19 10:09 Dose: 40 meq Documented by: PHYSICAL EXAMINATION: The patient is well-built. She is confused but not agitated. Selected Entries 09/21/19 14:02 Temperature 97.3 F Temperature Oral Source Pulse Rate 80 Respiratory 19 Rate Blood Pressure 188/73 H [Right Upper Arm] Blood Pressure 111 Mean [Right Upper Arm] Blood Pressure Supine Position [Right Upper Arm] O2 Sat by Pulse 93 Oximetry Oxygen Delivery Room Air Method ( includes room air) HEAD: Is atraumatic normocephalic. HEENT is negative. Neck is supple. There is no JVD. Carotids are equal there is no bruits there. There is no lymphadenopathy. There is no goiter. There is no axillary muscles of respiration use. There is no chest wall tenderness. Trachea central. LUNGS: Is clear to auscultation percussion. HEART: S1-S2 is heard. S1 is of normal intensity. There is no S3 gallop. There is no S4 gallop. There is systolic murmur left sternal border and apex there is no rub. ABDOMEN: Soft. Nontender. There is no paraspinal megaly. Bowel sounds are well heard. EXTREMITIES: Femorals are well felt. There is no femoral bruits. Leg pulses are well felt. There is no pedal edema. There is no DVT or cellulitis. There is no cyanosis or clubbing. [employer] BLASTING: Patient is conscious awake disoriented and confused. She moves all 4 extremities. PSYCHIATRIC: The patient does not appear to be agitated or anxious. The patient's initial EKG on admission shows sinus rhythm with a normal limits. Subsequently the patient's monitor strips show atrial fibrillation with rapid ventricular response. Subsequent EKG post conversion shows sinus rhythm within normal limits. Labs- Entire Visit 09/19/19 09/19/19 09/19/19 06:06 06:06 06:06 WBC 3.1 L RBC 4.32 Hgb 12.3 Hct 37.1 MCV 86 MCH 28.4 MCHC 33.1 RDW 14.0 Plt Count 147 L Lymph % (Auto) 6.5 L [place] % (Auto) 1.7 L Eos % (Auto) 0.2 Baso % (Auto) 0.2 Absolute Neuts (auto) 2.9 Absolute Lymphs (auto) 0.2 L Absolute Monos (auto) 0.1 Absolute Eos (auto) 0.0 Absolute Basos (auto) 0.0 Total Counted Seg Neutrophils % 91.4 H Seg Neuts % (Manual) Band Neutrophils % Lymphocytes % (Manual) Atypical Lymphs % Monocytes % (Manual) Eosinophils % (Manual) Basophils % (Manual) Abs Neuts (Manual) Abs Lymphs (Manual) Abs Monocytes (Manual) Absolute Eos (Manual) Abs Basophils (Manual) Platelet Comment Anisocytosis Ovalocytes [place] Cells Schistocytes PT 13.8 INR 1.06 VBG pH VBG pCO2 VBG HCO3 VBG Base Excess Sodium 130.6 L Potassium 3.3 L Chloride 94 L Carbon Dioxide 27 Anion Gap 10 BUN 20 Creatinine 0.54 Est GFR ( Amer) > 60 Est GFR (MDRD) Non-Af > 60 Glucose 261 H POC Glucose Hemoglobin A1c % Lactic Acid Calcium 8.9 Magnesium Total Bilirubin 2.1 H Direct Bilirubin 0.3 Neonat Total Bilirubin Not Reportable Neonat Direct Bilirubin Not Reportable Neonat Indirect Bili Not Reportable AST 75 H ALT 70 Alkaline Phosphatase 144 H Creatine Kinase CK-MB (CK-2) Troponin I NT-Pro-B Natriuret Pep Total Protein 6.4 Albumin 3.4 L TSH Free T4 Free T3 pg/mL Urine Color Urine Appearance Urine pH Ur Specific [place] Urine Protein Urine Glucose (UA) Urine Ketones Urine Blood Urine Nitrite Urine Bilirubin Urine Urobilinogen Ur Leukocyte Esterase Urine WBC (Auto) Urine RBC (Auto) Urine Bacteria (Auto) Squamous Epi Cells Auto Urine Mucus (Auto) Urine Ascorbic Acid Influenza A (Rapid) Influenza B (Rapid) 09/19/19 09/19/19 09/19/19 06:06 06:06 06:06 WBC RBC Hgb Hct MCV MCH MCHC RDW Plt Count Lymph % (Auto) [place] % (Auto) Eos % (Auto) Baso % (Auto) Absolute Neuts (auto) Absolute Lymphs (auto) Absolute Monos (auto) Absolute Eos (auto) Absolute Basos (auto) Total Counted Seg Neutrophils % Seg Neuts % (Manual) Band Neutrophils % Lymphocytes % (Manual) Atypical Lymphs % Monocytes % (Manual) Eosinophils % (Manual) Basophils % (Manual) Abs Neuts (Manual) Abs Lymphs (Manual) Abs Monocytes (Manual) Absolute Eos (Manual) Abs Basophils (Manual) Platelet Comment Anisocytosis Ovalocytes [place] Cells Schistocytes PT INR VBG pH VBG pCO2 VBG HCO3 VBG Base Excess Sodium Potassium Chloride Carbon Dioxide Anion Gap BUN Creatinine Est GFR ( Amer) Est GFR (MDRD) Non-Af Glucose POC Glucose Hemoglobin A1c % 9.7 H Lactic Acid 2.3 H Calcium Magnesium Total Bilirubin Direct Bilirubin Neonat Total Bilirubin Neonat Direct Bilirubin Neonat Indirect Bili AST ALT Alkaline Phosphatase Creatine Kinase CK-MB (CK-2) Troponin I NT-Pro-B Natriuret Pep 1310 H Total Protein Albumin TSH Free T4 Free T3 pg/mL Urine Color Urine Appearance Urine pH Ur Specific [place] Urine Protein Urine Glucose (UA) Urine Ketones Urine Blood Urine Nitrite Urine Bilirubin Urine Urobilinogen Ur Leukocyte Esterase Urine WBC (Auto) Urine RBC (Auto) Urine Bacteria (Auto) Squamous Epi Cells Auto Urine Mucus (Auto) Urine Ascorbic Acid Influenza A (Rapid) Influenza B (Rapid) 09/19/19 09/19/19 09/19/19 06:20 06:22 06:45 WBC RBC Hgb Hct MCV MCH MCHC RDW Plt Count Lymph % (Auto) [place] % (Auto) Eos % (Auto) Baso % (Auto) Absolute Neuts (auto) Absolute Lymphs (auto) Absolute Monos (auto) Absolute Eos (auto) Absolute Basos (auto) Total Counted Seg Neutrophils % Seg Neuts % (Manual) Band Neutrophils % Lymphocytes % (Manual) Atypical Lymphs % Monocytes % (Manual) Eosinophils % (Manual) Basophils % (Manual) Abs Neuts (Manual) Abs Lymphs (Manual) Abs Monocytes (Manual) Absolute Eos (Manual) Abs Basophils (Manual) Platelet Comment Anisocytosis Ovalocytes [place] Cells Schistocytes PT INR VBG pH 7.48 H VBG pCO2 36.0 VBG HCO3 26.0 VBG Base Excess 2.6 Sodium Potassium Chloride Carbon Dioxide Anion Gap BUN Creatinine Est GFR ( Amer) Est GFR (MDRD) Non-Af Glucose POC Glucose Hemoglobin A1c % Lactic Acid Calcium Magnesium Total Bilirubin Direct Bilirubin Neonat Total Bilirubin Neonat Direct Bilirubin Neonat Indirect Bili AST ALT Alkaline Phosphatase Creatine Kinase CK-MB (CK-2) Troponin I NT-Pro-B Natriuret Pep Total Protein Albumin TSH Free T4 Free T3 pg/mL Urine Color [place] Urine Appearance SLIGHTLY-CLOUDY Urine pH 6.0 Ur Specific [place] 1.014 Urine Protein 100 H Urine Glucose (UA) >=500 H Urine Ketones NEGATIVE Urine Blood LARGE H Urine Nitrite NEGATIVE Urine Bilirubin NEGATIVE Urine Urobilinogen 4.0 H Ur Leukocyte Esterase NEGATIVE Urine WBC (Auto) 9 Urine RBC (Auto) 10 Urine Bacteria (Auto) 3+ Squamous Epi Cells Auto <1 Urine Mucus (Auto) RARE Urine Ascorbic Acid NEGATIVE Influenza A (Rapid) NEGATIVE Influenza B (Rapid) NEGATIVE 09/19/19 09/19/19 09/19/19 09:50 12:46 16:15 WBC RBC Hgb Hct MCV MCH MCHC RDW Plt Count Lymph % (Auto) [place] % (Auto) Eos % (Auto) Baso % (Auto) Absolute Neuts (auto) Absolute Lymphs (auto) Absolute Monos (auto) Absolute Eos (auto) Absolute Basos (auto) Total Counted Seg Neutrophils % Seg Neuts % (Manual) Band Neutrophils % Lymphocytes % (Manual) Atypical Lymphs % Monocytes % (Manual) Eosinophils % (Manual) Basophils % (Manual) Abs Neuts (Manual) Abs Lymphs (Manual) Abs Monocytes (Manual) Absolute Eos (Manual) Abs Basophils (Manual) Platelet Comment Anisocytosis Ovalocytes [place] Cells Schistocytes PT INR VBG pH VBG pCO2 VBG HCO3 VBG Base Excess Sodium 131.1 L Potassium 4.3 D Chloride 100 Carbon Dioxide 23 Anion Gap 8 BUN 19 Creatinine 0.52 Est GFR ( Amer) > 60 Est GFR (MDRD) Non-Af > 60 Glucose 462 H* POC Glucose Hemoglobin A1c % Lactic Acid 1.9 3.5 H Calcium 8.1 L Magnesium Total Bilirubin Direct Bilirubin Neonat Total Bilirubin Neonat Direct Bilirubin Neonat Indirect Bili AST ALT Alkaline Phosphatase Creatine Kinase CK-MB (CK-2) Troponin I NT-Pro-B Natriuret Pep Total Protein Albumin TSH Free T4 Free T3 pg/mL Urine Color Urine Appearance Urine pH Ur Specific [place] Urine Protein Urine Glucose (UA) Urine Ketones Urine Blood Urine Nitrite Urine Bilirubin Urine Urobilinogen Ur Leukocyte Esterase Urine WBC (Auto) Urine RBC (Auto) Urine Bacteria (Auto) Squamous Epi Cells Auto Urine Mucus (Auto) Urine Ascorbic Acid Influenza A (Rapid) Influenza B (Rapid) 09/19/19 09/19/19 09/19/19 16:33 20:25 21:30 WBC RBC Hgb Hct MCV MCH MCHC RDW Plt Count Lymph % (Auto) [place] % (Auto) Eos % (Auto) Baso % (Auto) Absolute Neuts (auto) Absolute Lymphs (auto) Absolute Monos (auto) Absolute Eos (auto) Absolute Basos (auto) Total Counted Seg Neutrophils % Seg Neuts % (Manual) Band Neutrophils % Lymphocytes % (Manual) Atypical Lymphs % Monocytes % (Manual) Eosinophils % (Manual) Basophils % (Manual) Abs Neuts (Manual) Abs Lymphs (Manual) Abs Monocytes (Manual) Absolute Eos (Manual) Abs Basophils (Manual) Platelet Comment Anisocytosis Ovalocytes [place] Cells Schistocytes PT INR VBG pH VBG pCO2 VBG HCO3 VBG Base Excess Sodium Potassium Chloride Carbon Dioxide Anion Gap BUN Creatinine Est GFR ( Amer) Est GFR (MDRD) Non-Af Glucose POC Glucose 405 H* 266 H 238 H Hemoglobin A1c % Lactic Acid Calcium Magnesium Total Bilirubin Direct Bilirubin Neonat Total Bilirubin Neonat Direct Bilirubin Neonat Indirect Bili AST ALT Alkaline Phosphatase Creatine Kinase CK-MB (CK-2) Troponin I NT-Pro-B Natriuret Pep Total Protein Albumin TSH Free T4 Free T3 pg/mL Urine Color Urine Appearance Urine pH Ur Specific [place] Urine Protein Urine Glucose (UA) Urine Ketones Urine Blood Urine Nitrite Urine Bilirubin Urine Urobilinogen Ur Leukocyte Esterase Urine WBC (Auto) Urine RBC (Auto) Urine Bacteria (Auto) Squamous Epi Cells Auto Urine Mucus (Auto) Urine Ascorbic Acid Influenza A (Rapid) Influenza B (Rapid) 09/20/19 09/20/19 09/20/19 06:18 07:52 07:52 WBC 13.1 H D RBC 3.78 Hgb 10.8 L Hct 32.3 L MCV 86 MCH 28.5 MCHC 33.4 RDW 14.2 H Plt Count 125 L Lymph % (Auto) Not Reportable [place] % (Auto) Not Reportable Eos % (Auto) Not Reportable Baso % (Auto) Not Reportable Absolute Neuts (auto) Not Reportable Absolute Lymphs (auto) Not Reportable Absolute Monos (auto) Not Reportable Absolute Eos (auto) Not Reportable Absolute Basos (auto) Not Reportable Total Counted 100 Seg Neutrophils % Not Reportable Seg Neuts % (Manual) 81 H Band Neutrophils % 6 H Lymphocytes % (Manual) 3 L Atypical Lymphs % 5 Monocytes % (Manual) 5 Eosinophils % (Manual) 0 Basophils % (Manual) 0 Abs Neuts (Manual) 11.4 H Abs Lymphs (Manual) 1.0 Abs Monocytes (Manual) 0.7 Absolute Eos (Manual) 0.0 Abs Basophils (Manual) 0.0 Platelet Comment DECREASED Anisocytosis SLIGHT Ovalocytes SLIGHT [place] Cells SLIGHT Schistocytes SLIGHT PT INR VBG pH VBG pCO2 VBG HCO3 VBG Base Excess Sodium 135.6 L Potassium 3.4 L Chloride 104 Carbon Dioxide 25 Anion Gap 7 BUN 15 Creatinine 0.46 L Est GFR ( Amer) > 60 Est GFR (MDRD) Non-Af > 60 Glucose 243 H POC Glucose 240 H Hemoglobin A1c % Lactic Acid Calcium 8.0 L Magnesium Total Bilirubin Direct Bilirubin Neonat Total Bilirubin Neonat Direct Bilirubin Neonat Indirect Bili AST ALT Alkaline Phosphatase Creatine Kinase CK-MB (CK-2) Troponin I NT-Pro-B Natriuret Pep Total Protein Albumin TSH Free T4 Free T3 pg/mL Urine Color Urine Appearance Urine pH Ur Specific [place] Urine Protein Urine Glucose (UA) Urine Ketones Urine Blood Urine Nitrite Urine Bilirubin Urine Urobilinogen Ur Leukocyte Esterase Urine WBC (Auto) Urine RBC (Auto) Urine Bacteria (Auto) Squamous Epi Cells Auto Urine Mucus (Auto) Urine Ascorbic Acid Influenza A (Rapid) Influenza B (Rapid) 09/20/19 09/20/19 09/20/19 07:52 11:16 16:26 WBC RBC Hgb Hct MCV MCH MCHC RDW Plt Count Lymph % (Auto) [place] % (Auto) Eos % (Auto) Baso % (Auto) Absolute Neuts (auto) Absolute Lymphs (auto) Absolute Monos (auto) Absolute Eos (auto) Absolute Basos (auto) Total Counted Seg Neutrophils % Seg Neuts % (Manual) Band Neutrophils % Lymphocytes % (Manual) Atypical Lymphs % Monocytes % (Manual) Eosinophils % (Manual) Basophils % (Manual) Abs Neuts (Manual) Abs Lymphs (Manual) Abs Monocytes (Manual) Absolute Eos (Manual) Abs Basophils (Manual) Platelet Comment Anisocytosis Ovalocytes [place] Cells Schistocytes PT INR VBG pH VBG pCO2 VBG HCO3 VBG Base Excess Sodium Potassium Chloride Carbon Dioxide Anion Gap BUN Creatinine Est GFR ( Amer) Est GFR (MDRD) Non-Af Glucose POC Glucose 299 H 244 H Hemoglobin A1c % Lactic Acid 0.8 Calcium Magnesium Total Bilirubin Direct Bilirubin Neonat Total Bilirubin Neonat Direct Bilirubin Neonat Indirect Bili AST ALT Alkaline Phosphatase Creatine Kinase CK-MB (CK-2) Troponin I NT-Pro-B Natriuret Pep Total Protein Albumin TSH Free T4 Free T3 pg/mL Urine Color Urine Appearance Urine pH Ur Specific [place] Urine Protein Urine Glucose (UA) Urine Ketones Urine Blood Urine Nitrite Urine Bilirubin Urine Urobilinogen Ur Leukocyte Esterase Urine WBC (Auto) Urine RBC (Auto) Urine Bacteria (Auto) Squamous Epi Cells Auto Urine Mucus (Auto) Urine Ascorbic Acid Influenza A (Rapid) Influenza B (Rapid) 09/20/19 09/20/19 09/21/19 20:45 20:45 01:55 WBC RBC Hgb Hct MCV MCH MCHC RDW Plt Count Lymph % (Auto) [place] % (Auto) Eos % (Auto) Baso % (Auto) Absolute Neuts (auto) Absolute Lymphs (auto) Absolute Monos (auto) Absolute Eos (auto) Absolute Basos (auto) Total Counted Seg Neutrophils % Seg Neuts % (Manual) Band Neutrophils % Lymphocytes % (Manual) Atypical Lymphs % Monocytes % (Manual) Eosinophils % (Manual) Basophils % (Manual) Abs Neuts (Manual) Abs Lymphs (Manual) Abs Monocytes (Manual) Absolute Eos (Manual) Abs Basophils (Manual) Platelet Comment Anisocytosis Ovalocytes [place] Cells Schistocytes PT INR VBG pH VBG pCO2 VBG HCO3 VBG Base Excess Sodium 132.5 L Potassium 4.2 Chloride 103 Carbon Dioxide 20 L Anion Gap 10 BUN 13 Creatinine 0.36 L Est GFR ( Amer) > 60 Est GFR (MDRD) Non-Af > 60 Glucose 285 H POC Glucose 170 H Hemoglobin A1c % Lactic Acid Calcium 8.1 L Magnesium 2.1 Total Bilirubin Direct Bilirubin Neonat Total Bilirubin Neonat Direct Bilirubin Neonat Indirect Bili AST ALT Alkaline Phosphatase Creatine Kinase 62 CK-MB (CK-2) 1.15 Troponin I 0.078 NT-Pro-B Natriuret Pep Total Protein Albumin TSH Free T4 Free T3 pg/mL Urine Color Urine Appearance Urine pH Ur Specific [place] Urine Protein Urine Glucose (UA) Urine Ketones Urine Blood Urine Nitrite Urine Bilirubin Urine Urobilinogen Ur Leukocyte Esterase Urine WBC (Auto) Urine RBC (Auto) Urine Bacteria (Auto) Squamous Epi Cells Auto Urine Mucus (Auto) Urine Ascorbic Acid Influenza A (Rapid) Influenza B (Rapid) 09/21/19 09/21/19 09/21/19 02:35 02:35 08:37 WBC RBC Hgb Hct MCV MCH MCHC RDW Plt Count Lymph % (Auto) [place] % (Auto) Eos % (Auto) Baso % (Auto) Absolute Neuts (auto) Absolute Lymphs (auto) Absolute Monos (auto) Absolute Eos (auto) Absolute Basos (auto) Total Counted Seg Neutrophils % Seg Neuts % (Manual) Band Neutrophils % Lymphocytes % (Manual) Atypical Lymphs % Monocytes % (Manual) Eosinophils % (Manual) Basophils % (Manual) Abs Neuts (Manual) Abs Lymphs (Manual) Abs Monocytes (Manual) Absolute Eos (Manual) Abs Basophils (Manual) Platelet Comment Anisocytosis Ovalocytes [place] Cells Schistocytes PT INR VBG pH VBG pCO2 VBG HCO3 VBG Base Excess Sodium Potassium Chloride Carbon Dioxide Anion Gap BUN Creatinine Est GFR ( Amer) Est GFR (MDRD) Non-Af Glucose POC Glucose 200 H Hemoglobin A1c % Lactic Acid Calcium Magnesium Total Bilirubin Direct Bilirubin Neonat Total Bilirubin Neonat Direct Bilirubin Neonat Indirect Bili AST ALT Alkaline Phosphatase Creatine Kinase 34 CK-MB (CK-2) 0.69 Troponin I 0.064 NT-Pro-B Natriuret Pep Total Protein Albumin TSH Free T4 Free T3 pg/mL Urine Color Urine Appearance Urine pH Ur Specific [place] Urine Protein Urine Glucose (UA) Urine Ketones Urine Blood Urine Nitrite Urine Bilirubin Urine Urobilinogen Ur Leukocyte Esterase Urine WBC (Auto) Urine RBC (Auto) Urine Bacteria (Auto) Squamous Epi Cells Auto Urine Mucus (Auto) Urine Ascorbic Acid Influenza A (Rapid) Influenza B (Rapid) 09/21/19 09/21/19 09/21/19 08:49 08:49 08:49 WBC 12.5 H RBC 3.81 Hgb 10.8 L Hct 32.6 L MCV 85 MCH 28.4 MCHC 33.3 RDW 14.5 H Plt Count 154 Lymph % (Auto) 11.0 L [place] % (Auto) 9.0 Eos % (Auto) 0.2 Baso % (Auto) 0.3 Absolute Neuts (auto) 10.0 H Absolute Lymphs (auto) 1.4 Absolute Monos (auto) 1.1 Absolute Eos (auto) 0.0 Absolute Basos (auto) 0.0 Total Counted Seg Neutrophils % 79.5 H Seg Neuts % (Manual) Band Neutrophils % Lymphocytes % (Manual) Atypical Lymphs % Monocytes % (Manual) Eosinophils % (Manual) Basophils % (Manual) Abs Neuts (Manual) Abs Lymphs (Manual) Abs Monocytes (Manual) Absolute Eos (Manual) Abs Basophils (Manual) Platelet Comment Anisocytosis Ovalocytes [place] Cells Schistocytes PT INR VBG pH VBG pCO2 VBG HCO3 VBG Base Excess Sodium Potassium Chloride Carbon Dioxide Anion Gap BUN Creatinine Est GFR ( Amer) Est GFR (MDRD) Non-Af Glucose POC Glucose Hemoglobin A1c % Lactic Acid Calcium Magnesium Total Bilirubin Direct Bilirubin Neonat Total Bilirubin Neonat Direct Bilirubin Neonat Indirect Bili AST ALT Alkaline Phosphatase Creatine Kinase 24 L CK-MB (CK-2) 0.58 Troponin I 0.038 NT-Pro-B Natriuret Pep Total Protein Albumin TSH Free T4 Free T3 pg/mL Urine Color Urine Appearance Urine pH Ur Specific [place] Urine Protein Urine Glucose (UA) Urine Ketones Urine Blood Urine Nitrite Urine Bilirubin Urine Urobilinogen Ur Leukocyte Esterase Urine WBC (Auto) Urine RBC (Auto) Urine Bacteria (Auto) Squamous Epi Cells Auto Urine Mucus (Auto) Urine Ascorbic Acid Influenza A (Rapid) Influenza B (Rapid) 09/21/19 09/21/19 09/21/19 08:49 08:49 11:59 WBC RBC Hgb Hct MCV MCH MCHC RDW Plt Count Lymph % (Auto) [place] % (Auto) Eos % (Auto) Baso % (Auto) Absolute Neuts (auto) Absolute Lymphs (auto) Absolute Monos (auto) Absolute Eos (auto) Absolute Basos (auto) Total Counted Seg Neutrophils % Seg Neuts % (Manual) Band Neutrophils % Lymphocytes % (Manual) Atypical Lymphs % Monocytes % (Manual) Eosinophils % (Manual) Basophils % (Manual) Abs Neuts (Manual) Abs Lymphs (Manual) Abs Monocytes (Manual) Absolute Eos (Manual) Abs Basophils (Manual) Platelet Comment Anisocytosis Ovalocytes [place] Cells Schistocytes PT INR VBG pH VBG pCO2 VBG HCO3 VBG Base Excess Sodium 134.6 L Potassium 4.4 Chloride 105 Carbon Dioxide 23 Anion Gap 7 BUN 14 Creatinine 0.35 L Est GFR ( Amer) > 60 Est GFR (MDRD) Non-Af > 60 Glucose 236 H POC Glucose 239 H Hemoglobin A1c % Lactic Acid Calcium 8.0 L Magnesium Total Bilirubin Direct Bilirubin Neonat Total Bilirubin Neonat Direct Bilirubin Neonat Indirect Bili AST ALT Alkaline Phosphatase Creatine Kinase CK-MB (CK-2) Troponin I NT-Pro-B Natriuret Pep Total Protein Albumin TSH 1.27 Free T4 1.59 Free T3 pg/mL 1.77 L Urine Color Urine Appearance Urine pH Ur Specific [place] Urine Protein Urine Glucose (UA) Urine Ketones Urine Blood Urine Nitrite Urine Bilirubin Urine Urobilinogen Ur Leukocyte Esterase Urine WBC (Auto) Urine RBC (Auto) Urine Bacteria (Auto) Squamous Epi Cells Auto Urine Mucus (Auto) Urine Ascorbic Acid Influenza A (Rapid) Influenza B (Rapid) 09/21/19 15:55 WBC RBC Hgb Hct MCV MCH MCHC RDW Plt Count Lymph % (Auto) [place] % (Auto) Eos % (Auto) Baso % (Auto) Absolute Neuts (auto) Absolute Lymphs (auto) Absolute Monos (auto) Absolute Eos (auto) Absolute Basos (auto) Total Counted Seg Neutrophils % Seg Neuts % (Manual) Band Neutrophils % Lymphocytes % (Manual) Atypical Lymphs % Monocytes % (Manual) Eosinophils % (Manual) Basophils % (Manual) Abs Neuts (Manual) Abs Lymphs (Manual) Abs Monocytes (Manual) Absolute Eos (Manual) Abs Basophils (Manual) Platelet Comment Anisocytosis Ovalocytes [place] Cells Schistocytes PT INR VBG pH VBG pCO2 VBG HCO3 VBG Base Excess Sodium Potassium Chloride Carbon Dioxide Anion Gap BUN Creatinine Est GFR ( Amer) Est GFR (MDRD) Non-Af Glucose POC Glucose 230 H Hemoglobin A1c % Lactic Acid Calcium Magnesium Total Bilirubin Direct Bilirubin Neonat Total Bilirubin Neonat Direct Bilirubin Neonat Indirect Bili AST ALT Alkaline Phosphatase Creatine Kinase CK-MB (CK-2) Troponin I NT-Pro-B Natriuret Pep Total Protein Albumin TSH Free T4 Free T3 pg/mL Urine Color Urine Appearance Urine pH Ur Specific [place] Urine Protein Urine Glucose (UA) Urine Ketones Urine Blood Urine Nitrite Urine Bilirubin Urine Urobilinogen Ur Leukocyte Esterase Urine WBC (Auto) Urine RBC (Auto) Urine Bacteria (Auto) Squamous Epi Cells Auto Urine Mucus (Auto) Urine Ascorbic Acid Influenza A (Rapid) Influenza B (Rapid) Chest X-Ray 09/19/19 06:26 IMPRESSION: Possible medial right upper lung opacity, if no old x-ray is available to document long-term stability would recommend follow-up chest CT. Chest CT 09/19/19 08:36 IMPRESSION: No acute findings in the chest. IMPRESSION/RECOMMENDATION: 1. Proximal atrial fibrillation. Patient presents in sinus rhythm. We will continue the patient's Cardizem at current doses. Note the patient is not a candidate for chronic anticoagulation therapy due to the patient's advanced age, dementia and history of frequent falls as per nursing. This would greatly increase the patient's risk of bleeding which would be much more than the patient's benefits. 2. Sepsis/secondary to urinary tract infection. Continue antibiotics. 3. Hypertension: Blood pressure well controlled. 4. Dementia: Continue current treatment. Medications reviewed. Medical decision making is of moderate complexity. Medications and medical regimen and management plan discussed with attending provider. Will follow.
[2019-09-21] MEDS: ATORVASTATIN CALCIUM 40 MG TABLET PO SCH (22:43)
[2019-09-21] MEDS: INSULIN GLARGINE,HUM.REC.ANLOG 1,000 UNIT/10 ML VIAL SUBCUT SCH (22:44)
[2019-09-22] MEDS: DILTIAZEM HCL 30 MG TABLET PO SCH ×3 (05:12→21:09)
[2019-09-22] MEDS: HEPARIN SOD (PORCINE) 5,000 UNIT/ML 1 ML VIAL SUBCUT SCH ×3 (05:12→21:10)
[2019-09-22] MEDS: INSULIN LISPRO 100 UNIT/ML 3 ML VIAL SUBCUT SCH ×4 (08:37→21:10)
[2019-09-22] MEDS: HYDROCHLOROTHIAZIDE 25 MG TABLET PO SCH (08:59)
[2019-09-22] MEDS: ASPIRIN 81 MG TABLET, CHEWABLE PO SCH (08:59)
[2019-09-22] MEDS: METFORMIN HCL 500 MG TABLET PO SCH ×2 (09:00→17:53)
[2019-09-22] MEDS: GLIPIZIDE 5 MG TABLET PO SCH ×2 (09:00→17:53)
[2019-09-22] MEDS: METOPROLOL TARTRATE 100 MG TABLET PO SCH ×2 (09:00→21:09)
[2019-09-22] MEDS: CEFTRIAXONE 1 GM/D5W RTU 1 GM/50 ML RTUPB IV SCH (09:02)
[2019-09-22] MEDS: POTASSIUM CHLORIDE 10 MEQ TABLET.ER PO SCH ×2 (09:04→17:53)
[2019-09-22] MEDS ORDERED: DILTIAZEM HCL 30 MG TABLET PO ONE (10:30)
[2019-09-22 11:03] LABS: ANION GAP 9 (5-19); BLOOD UREA NITROGEN 11 mg/dL (7-20); CARBON DIOXIDE 25 mmol/L (22-30); CHLORIDE 98 mmol/L (98-107); GLUCOSE 266 mg/dL (75-110); POTASSIUM 3.8 mmol/L (3.6-5.0)
--- NOTE | 2019-09-22 12:59 | EKG REPORT ---
SEVERITY:- NORMAL ECG - SINUS RHYTHM BORDERLINE Q INF LEADS : Confirmed by: Himanshu Dvaalos 22-Sep-2019 12:59:12
--- NOTE | 2019-09-22 13:59 | PDOC PROGRESS REPORT ---
Subjective Progress Note for:: 09/22/19 Subjective:: NOHELIA WAGONER is a 89 year old female past medical history of diabetes mellitus type 2, hypertension hyperlipidemia who was brought into the ER from long-term due to fever and weakness. She was admitted for possible sepsis secondary to questionable right lung pneumonia versus UTI. Chest CT was pursued and did not show evidence of pneumonia. UA was consistent with UTI. Blood cultures and urine culture are growing gram-negative rods. 09/20: Upon encounter this morning, she appears more awake and conversant. She denies acute complaints. Denies chest pain or shortness of breath. 09/21: Patient went into A. fib with RVR in the 150s last night patient was s tarted on Cardizem drip. Otherwise, she reports she continues to feel better upon encounter this morning. Denies chest pain or shortness of breath. She has converted to normal sinus rhythm. Will wean off Cardizem drip today. 09/22: No acute event overnight. Remains off Cardizem drip. Patient appears comfortable and denies acute complaints on encounter. She has a few episodes of going into the 130s and dipping down into the 60s. Heart rate is mostly controlled most of the time. Unable to get hold of any family member at this time. Reason For Visit: AFIB Physical Exam Vital Signs: Temp Pulse Resp BP Pulse Ox 98.5 F 64 16 140/62 H 95 09/22/19 11:52 09/22/19 11:52 09/22/19 11:52 09/22/19 11:52 09/22/19 11:52 Intake & Output 09/21/19 09/22/19 09/23/19 06:59 06:59 06:59 Intake Total 1524 2054 390 Output Total 0 500 Balance 1524 1554 390 Weight 127 lb 3.307 oz 129 lb 10.109 oz General appearance: PRESENT: no acute distress, well-developed, well-nourished Head exam: PRESENT: atraumatic, normocephalic Eye exam: PRESENT: conjunctiva pink, EOMI, PERRLA. ABSENT: scleral icterus Ear exam: PRESENT: normal external ear exam Mouth exam: PRESENT: moist, tongue midline Neck exam: ABSENT: carotid bruit, JVD, lymphadenopathy, thyromegaly Respiratory exam: PRESENT: clear to auscultation batsheva. ABSENT: rales, rhonchi, wheezes Cardiovascular exam: PRESENT: irregular rhythm. ABSENT: diastolic murmur, rubs, systolic murmur Pulses: PRESENT: normal dorsalis pedis pul GI/Abdominal exam: PRESENT: normal bowel sounds, soft. ABSENT: distended, guarding, mass, organolmegaly, rebound, tenderness Rectal exam: PRESENT: deferred Extremities exam: PRESENT: full ROM. ABSENT: calf tenderness, clubbing, pedal edema Neurological exam: PRESENT: alert, awake, CN II-XII grossly intact. ABSENT: motor sensory deficit Results Laboratory Results: 09/21/19 08:49 09/22/19 10:30 09/22/19 10:30 Sodium 131.8 L Potassium 3.8 Chloride 98 Carbon Dioxide 25 Anion Gap 9 BUN 11 Creatinine 0.35 L Est GFR ( Amer) > 60 Glucose 266 H Calcium 8.0 L Magnesium 2.0 09/19/19 06:06 Blood Blood Culture (PCR) - Final Escherichia Coli 09/19/19 06:06 Blood Blood Culture - Final Escherichia Coli 09/19/19 07:55 Blood Blood Culture - Final Escherichia Coli 09/19/19 09/20/19 09/20/19 06:06 20:45 20:45 Creatine Kinase 62 CK-MB (CK-2) 1.15 Troponin I 0.078 NT-Pro-B Natriuret Pep 1310 H 09/21/19 09/21/19 09/21/19 02:35 02:35 08:49 Creatine Kinase 34 24 L CK-MB (CK-2) 0.69 Troponin I 0.064 NT-Pro-B Natriuret Pep 09/21/19 08:49 Creatine Kinase CK-MB (CK-2) 0.58 Troponin I 0.038 NT-Pro-B Natriuret Pep Impressions: Chest X-Ray 09/19/19 06:26 IMPRESSION: Possible medial right upper lung opacity, if no old x-ray is available to document long-term stability would recommend follow-up chest CT. Chest CT 09/19/19 08:36 IMPRESSION: No acute findings in the chest. Assessment and Plan - Diagnosis (1) Atrial fibrillation with rapid ventricular response Is this a current diagnosis for this admission?: Yes Plan: 09/21: Converted to normal sinus rhythm. Discontinue Cardizem drip. Continue oral Lopressor. We will add p.o. Cardizem. 09/22: She has a few episodes of going into the 130s and dipping down into the 60s. Heart rate is mostly controlled most of the time. Not a good candidate for long-term anticoagulation. Continue p.o. Lopressor and Cardizem. (2) Sepsis Qualifiers: Sepsis type: sepsis due to unspecified organism Sepsis acute organ dysfunction status: unspecified Qualified Code(s): A41.9 - Sepsis, unspecified organism Is this a current diagnosis for this admission?: Yes Plan: Secondary to urinary tract infection. Continue IV Rocephin as she appears to be clinically improving on current antibiotic. Blood cultures and urine culture grew pansensitive E. coli. (3) UTI (urinary tract infection) Is this a current diagnosis for this admission?: Yes Plan: As per #1. (4) Lactic acidosis Is this a current diagnosis for this admission?: Yes Plan: Resolved. (5) Hypertension Is this a current diagnosis for this admission?: Yes Plan: Continue metoprolol and hydrochlorothiazide. (6) Diabetes mellitus type 2 in nonobese Is this a current diagnosis for this admission?: Yes Plan: Resumed glipizide and metformin. - Time Time Spent with patient: 25-34 minutes
--- NOTE | 2019-09-22 16:08 | Progress Note ---
Provider Note Provider Note: CARDIOLOGY PROGRESS NOTE by Dr. Katiana Neri on 09/22/2019. SUBJECTIVE: The patient remains confused but appears to be in no acute distress. Although her heart rate is controlled, and the patient is in sinus rhythm, she has spurts where her heart rate was up to the 150 for just a few minutes, of paroxysmal atrial fibrillation.. The patient is asymptomatic. She moves all 4 extremities. There is no complaints of chest pain discomfort. Of note the patient has been made DNR by her healthcare surrogate power of carpet installer helper. Also the attending physician has discussed with her regarding the patient being on anticoagulation. The patient has a history of falls. And in view of the advanced age and dementia with the patient surrogate healthcare decision maker has made edition not to place the patient on chronic anticoagulation. I have increased the patient's Cardizem to 60 mg p.o. every 6 hours. Tomorrow will change to a long-acting preparation in the form of Cardizem CD 120 mg p.o. every 12 hours. PHYSICAL EXAMINATION: The patient is no acute distress. Selected Entries 09/22/19 07:55 Temperature 99.4 F Temperature Oral Source Pulse Rate 70 Respiratory 16 Rate Blood Pressure 131/57 H Blood Pressure 81 Mean BP Location Left Arm BP Position Supine O2 Sat by Pulse 96 Oximetry Oxygen Delivery Room Air Method HEAD: Is atraumatic normocephalic. HEENT is negative. Neck is supple. There is no JVD. Carotids are equal there is no bruits there. There is no lymphadenopathy. There is no goiter. There is no axillary muscles of respiration use. There is no chest wall tenderness. Trachea central. LUNGS: Is clear to auscultation percussion. HEART: S1-S2 is heard. S1 is of normal intensity. There is no S3 gallop. There is no S4 gallop. There is systolic murmur left sternal border and apex there is no rub. ABDOMEN: Soft. Nontender. There is no paraspinal megaly. Bowel sounds are well heard. EXTREMITIES: Femorals are well felt. There is no femoral bruits. Leg pulses are well felt. There is no pedal edema. There is no DVT or cellulitis. There is no cyanosis or clubbing. BRIM SETTER: Patient is conscious awake disoriented and confused. She moves all 4 extremities. PSYCHIATRIC: The patient does not appear to be agitated or anxious. Abnormal - 24 hr 09/21/19 09/22/19 09/22/19 21:17 07:54 10:30 Sodium 131.8 L Creatinine 0.35 L Glucose 266 H POC Glucose 225 H 148 H Calcium 8.0 L 09/22/19 09/22/19 11:52 16:45 Sodium Creatinine Glucose POC Glucose 261 H 156 H Calcium Labs- All tests 24 hr 09/21/19 09/22/19 09/22/19 21:17 07:54 10:30 Sodium 131.8 L Potassium 3.8 Chloride 98 Carbon Dioxide 25 Anion Gap 9 BUN 11 Creatinine 0.35 L Est GFR ( Amer) > 60 Est GFR (MDRD) Non-Af > 60 Glucose 266 H POC Glucose 225 H 148 H Calcium 8.0 L Magnesium 2.0 09/22/19 09/22/19 11:52 16:45 Sodium Potassium Chloride Carbon Dioxide Anion Gap BUN Creatinine Est GFR ( Amer) Est GFR (MDRD) Non-Af Glucose POC Glucose 261 H 156 H Calcium Magnesium Chest X-Ray 09/19/19 06:26 IMPRESSION: Possible medial right upper lung opacity, if no old x-ray is available to document long-term stability would recommend follow-up chest CT. Chest CT 09/19/19 08:36 IMPRESSION: No acute findings in the chest. IMPRESSION/RECOMMENDATION: 1. Proximal atrial fibrillation. Patient presents in sinus rhythm. We will continue the patient's Cardizem at current doses. Note the patient is not a candidate for chronic anticoagulation therapy due to the patient's advanced age, dementia and history of frequent falls as per nursing. This would greatly increase the patient's risk of bleeding which would be much more than the patient's benefits. Education has been made not to place the patient on chronic anticoagulation. The patient's Cardizem dose has been increased. Tomorrow will change to long-acting Cardizem CD 120 mg p.o. every 12 hours. Continue metoprolol. 2. Sepsis/secondary to urinary tract infection. Continue antibiotics. 3. Hypertension: Blood pressure well controlled. 4. Dementia: Continue current treatment. 5. DNR. Medications reviewed. Medical decision making is of high complexity. This is in view of the need to increase the medication dosage and watch for any complications that could occur. Medications and medical regimen and management plan discussed with attending provider. Will follow. 35 minutes spent with patient more than 50% of time spent in direct patient care.
--- NOTE | 2019-09-22 18:52 | ADVANCED CARE ---
- Diagnosis (1) Sepsis Diagnosis Current: Yes (2) Atrial fibrillation with rapid ventricular response Diagnosis Current: Yes (3) UTI (urinary tract infection) Diagnosis Current: Yes (4) Lactic acidosis Diagnosis Current: Yes (5) Hypertension Diagnosis Current: Yes (6) Diabetes mellitus type 2 in nonobese Diagnosis Current: Yes Resuscitation Status: Do Not Resuscitate Discussion: Discussed with patient's sister, Randy/SHARA on bedside. Updated about patient's status and lab results and plan of care. She expressed patient does have advance directive and has expressed previously that she is a DNR/DNI and does not prefer to receive any chest compressions, defibrillation or mechanical ventilation. Also discussed in length her new onset A. fib in route and benefits of anticoagulation. Patient sister did mention that she does have prior episode of falls the past year and does not want the risk of bleeding with anticoagulation.
[2019-09-22] MEDS: ATORVASTATIN CALCIUM 40 MG TABLET PO SCH (21:10)
[2019-09-22] MEDS: INSULIN GLARGINE,HUM.REC.ANLOG 1,000 UNIT/10 ML VIAL SUBCUT SCH (21:10)
[2019-09-23] MEDS: DILTIAZEM HCL 30 MG TABLET PO SCH ×2 (03:25→09:27)
[2019-09-23] MEDS: HEPARIN SOD (PORCINE) 5,000 UNIT/ML 1 ML VIAL SUBCUT SCH ×3 (05:43→22:17)
[2019-09-23] MEDS: INSULIN LISPRO 100 UNIT/ML 3 ML VIAL SUBCUT SCH ×4 (08:57→22:18)
[2019-09-23] MEDS: GLIPIZIDE 5 MG TABLET PO SCH ×2 (09:26→17:00)
[2019-09-23] MEDS: CEFTRIAXONE 2 GM/D5W RTU 2 GM/50 ML RTUPB IV SCH (09:26)
[2019-09-23] MEDS: ASPIRIN 81 MG TABLET, CHEWABLE PO SCH (09:26)
[2019-09-23] MEDS: METOPROLOL TARTRATE 100 MG TABLET PO SCH ×2 (09:26→22:18)
[2019-09-23] MEDS: POTASSIUM CHLORIDE 10 MEQ TABLET.ER PO SCH ×2 (09:26→17:00)
[2019-09-23] MEDS: HYDROCHLOROTHIAZIDE 25 MG TABLET PO SCH (09:26)
[2019-09-23] MEDS: METFORMIN HCL 500 MG TABLET PO SCH ×2 (09:26→16:58)
--- NOTE | 2019-09-23 13:41 | PDOC PROGRESS REPORT ---
Subjective Progress Note for:: 09/23/19 Subjective:: NOHELIA WAGONER is a 89 year old female past medical history of dementia, diabetes mellitus type 2, hypertension hyperlipidemia who was brought into the ER from [facility] due to fever and weakness. She was admitted for possible sepsis secondary to questionable right lung pneumonia versus UTI. Chest CT was pursued and did not show evidence of pneumonia. UA was consistent with UTI. Blood cultures and urine culture are growing gram-negative rods. 09/20: Upon encounter this morning, she appears more awake and conversant. She denies acute complaints. Denies chest pain or shortness of breath. 09/21: Patient went into A. fib with RVR in the 150s last night patient was started on Cardizem drip. Otherwise, she reports she continues to feel better upon encounter this morning. Denies chest pain or shortness of breath. She has converted to normal sinus rhythm. Will wean off Cardizem drip today. 09/22: No acute event overnight. Remains off Cardizem drip. Patient appears comfortable and denies acute complaints on encounter. She has a few episodes of going into the 130s and dipping down into the 60s. Heart rate is mostly controlled most of the time. Unable to get hold of any family member at this time. 09/23: No acute event overnight. Patient continues to improve. Denies acute complaints. She does have dementia per patient's sister. Patient is at her baseline. No episodes of sustained RVR overnight. Heart rate in the 60s. In light of her E. coli bacteremia from UTI, patient will need at least 7 days of IV antibiotics. Will complete IV antibiotics on 09/26/2019. Reason For Visit: AFIB Physical Exam Vital Signs: Temp Pulse Resp BP Pulse Ox 97.7 F 65 20 152/63 H 94 09/23/19 12:06 09/23/19 12:06 09/23/19 12:06 09/23/19 12:06 09/23/19 12:06 Intake & Output 09/22/19 09/23/19 09/24/19 06:59 06:59 06:59 Intake Total 2054 860 50 Output Total 500 400 Balance 1554 460 50 Weight 129 lb 10.109 oz 121 lb 7.595 oz General appearance: PRESENT: no acute distress, well-developed, well-nourished Head exam: PRESENT: atraumatic, normocephalic Eye exam: PRESENT: conjunctiva pink, EOMI, PERRLA. ABSENT: scleral icterus Ear exam: PRESENT: normal external ear exam Mouth exam: PRESENT: moist, tongue midline Neck exam: ABSENT: carotid bruit, JVD, lymphadenopathy, thyromegaly Respiratory exam: PRESENT: clear to auscultation batsheva. ABSENT: rales, rhonchi, wheezes Cardiovascular exam: PRESENT: RRR. ABSENT: diastolic murmur, rubs, systolic murmur Pulses: PRESENT: normal dorsalis pedis pul GI/Abdominal exam: PRESENT: normal bowel sounds, soft. ABSENT: distended, guarding, mass, organolmegaly, rebound, tenderness Rectal exam: PRESENT: deferred Neurological exam: PRESENT: alert, awake, CN II-XII grossly intact. ABSENT: motor sensory deficit Results Laboratory Results: 09/21/19 08:49 09/22/19 10:30 09/19/19 09/20/19 09/20/19 06:06 20:45 20:45 Creatine Kinase 62 CK-MB (CK-2) 1.15 Troponin I 0.078 NT-Pro-B Natriuret Pep 1310 H 09/21/19 09/21/19 09/21/19 02:35 02:35 08:49 Creatine Kinase 34 24 L CK-MB (CK-2) 0.69 Troponin I 0.064 NT-Pro-B Natriuret Pep 09/21/19 08:49 Creatine Kinase CK-MB (CK-2) 0.58 Troponin I 0.038 NT-Pro-B Natriuret Pep Impressions: Chest X-Ray 09/19/19 06:26 IMPRESSION: Possible medial right upper lung opacity, if no old x-ray is available to document long-term stability would recommend follow-up chest CT. Chest CT 09/19/19 08:36 IMPRESSION: No acute findings in the chest. Assessment and Plan - Diagnosis (1) Sepsis Qualifiers: Sepsis type: sepsis due to unspecified organism Sepsis acute organ dy sfunction status: unspecified Qualified Code(s): A41.9 - Sepsis, unspecified organism Is this a current diagnosis for this admission?: Yes Plan: Secondary to urinary tract infection. Continue IV Rocephin as she appears to be clinically improving on current antibiotic. Blood cultures and urine culture grew pansensitive E. coli. 09/23: In light of her E. coli bacteremia from UTI, patient will need at least 7 days of IV antibiotics. Will complete IV antibiotics on 09/26/2019. (2) Atrial fibrillation with rapid ventricular response Is this a current diagnosis for this admission?: Yes Plan: 09/21: Converted to normal sinus rhythm. Discontinue Cardizem drip. Continue oral Lopressor. We will add p.o. Cardizem. 09/22: She has a few episodes of going into the 130s and dipping down into the 60s. Heart rate is mostly controlled most of the time. Not a good candidate for long-term anticoagulation. Continue p.o. Lopressor and Cardizem. 09/23: Switch cardizem to 120 mg CD q12. (3) UTI (urinary tract infection) Is this a current diagnosis for this admission?: Yes Plan: As per #1. (4) Lactic acidosis Is this a current diagnosis for this admission?: Yes Plan: Resolved. (5) Hypertension Is this a current diagnosis for this admission?: Yes Plan: Continue metoprolol and hydrochlorothiazide. (6) Diabetes mellitus type 2 in nonobese Is this a current diagnosis for this admission?: Yes Plan: Resumed glipizide and metformin. - Time Time Spent with patient: 25-34 minutes
--- NOTE | 2019-09-23 21:13 | Progress Note ---
Provider Note Provider Note: CARDIOLOGY PROGRESS NOTE by Dr. Katiana Neri on 09/23/2019. SUBJECTIVE: The patient remains in sinus rhythm. She still pleasantly confused. There is no ventricular arrhythmia seen on the monitor. The patient denies any chest pain or discomfort. She has no evidence of CVA and she moves all 4 extremities. PHYSICAL EXAMINATION: The patient is well-built. Appears to be chronically ill. Selected Entries 09/23/19 15:32 Temperature 98.1 F Temperature Oral Source Pulse Rate 66 Respiratory 18 Rate Blood Pressure 142/76 H Blood Pressure 98 Mean BP Location Right Arm BP Position Supine O2 Sat by Pulse 93 Oximetry Oxygen Delivery Room Air Method HEAD: Is atraumatic normocephalic. HEENT is negative. Neck is supple. There is no JVD. Carotids are equal there is no bruits there. There is no lymphadenopathy. There is no goiter. There is no axillary muscles of respiration use. There is no chest wall tenderness. Trachea central. LUNGS: Is clear to auscultation percussion. HEART: S1-S2 is heard. S1 is of normal intensity. There is no S3 gallop. There is no S4 gallop. There is systolic murmur left sternal border and apex there is no rub. ABDOMEN: Soft. Nontender. There is no paraspinal megaly. Bowel sounds are well heard. EXTREMITIES: Femorals are well felt. There is no femoral bruits. Leg pulses are well felt. There is no pedal edema. There is no DVT or cellulitis. There is no cyanosis or clubbing. VEGETABLE PICKER: Patient is conscious awake disoriented and confused. She moves all 4 extremities. PSYCHIATRIC: The patient does not appear to be agitated or anxious. Labs- All tests 24 hr 09/23/19 09/23/19 09/23/19 07:56 12:11 16:21 POC Glucose 120 H 282 H 100 09/23/19 21:23 POC Glucose 163 H Chest X-Ray 09/19/19 06:26 IMPRESSION: Possible medial right upper lung opacity, if no old x-ray is available to document long-term stability would recommend follow-up chest CT. Chest CT 09/19/19 08:36 IMPRESSION: No acute findings in the chest. IMPRESSION/RECOMMENDATION: 1. Paroxysmal atrial fibrillation. Patient presents in sinus rhythm. The patient has been placed on Cardizem CD 120 mg p.o. every 12 hours. Continue metoprolol. 2. Sepsis/secondary to urinary tract infection. Continue antibiotics. 3. Hypertension: Blood pressure well controlled. 4. Dementia: Continue current treatment. 5. DNR. Discussed with the patient's surrogate healthcare decision maker Ms. Alaniz. She agrees of the expiration that patient is not a candidate for chronic anticoagulation therapy. The patient is being sent back to the [email or web address] tomorrow. She will make arrangements for the patient to see me periodically in the office. Medical decision making is of moderate complexity. Medications reviewed and medication discussed with Dr. Zapata. 35 minutes spent with patient more than 50% of time spent in direct patient care. Will sign off.
[2019-09-23] MEDS: ATORVASTATIN CALCIUM 40 MG TABLET PO SCH (22:18)
[2019-09-23] MEDS: DILTIAZEM HCL 120 MG CAP.SR.24H PO SCH (22:18)
[2019-09-23] MEDS: INSULIN GLARGINE,HUM.REC.ANLOG 1,000 UNIT/10 ML VIAL SUBCUT SCH (22:19)
[2019-09-24 04:55] LABS: ABSOLUTE BASOPHILS # (AUTO) 0.1 10^3/uL (0.0-0.2); ABSOLUTE EOSINOPHILS # (AUTO) 0.1 10^3/uL (0.0-0.6); ABSOLUTE LYMPHOCYTES (AUTO) 1.7 10^3/uL (0.5-4.7); ABSOLUTE MONOCYTES (AUTO) 1.3 10^3/uL (0.1-1.4); ABSOLUTE NEUT (AUTO) 4.3 10^3/uL (1.7-8.2); BASOPHILS % (AUTO) 0.7 % (0-2); EOSINOPHILS % (AUTO) 1.9 % (0-6); HEMATOCRIT 33.9 % (36.0-47.0); HEMOGLOBIN 11.5 g/dL (12.0-15.5); LYMPHOCYTES % (AUTO) 23.3 % (13-45); MEAN CORPUSCULAR HEMOGLOBIN 28.4 pg (27.0-33.4); MEAN CORPUSCULAR HGB CONC 33.8 g/dL (32.0-36.0); MEAN CORPUSCULAR VOLUME 84 fl (80-97); MONOCYTES % (AUTO) 17.4 % (3-13); PLATELET COUNT 267 10^3/uL (150-450); RED BLOOD COUNT 4.04 10^6/uL (3.72-5.28); SEGMENTED NEUTROPHILS % (AUTO) 56.7 % (42-78); TOTAL CELLS COUNTED % (AUTO) 100 %; WHITE BLOOD COUNT 7.5 10^3/uL (4.0-10.5)
[2019-09-24 05:20] LABS: BLOOD UREA NITROGEN 9 mg/dL (7-20); CALCIUM 8.2 mg/dL (8.4-10.2); CARBON DIOXIDE 28 mmol/L (22-30); GLUCOSE 163 mg/dL (75-110)
[2019-09-24 05:39] LABS: CHLORIDE 100 mmol/L (98-107)
[2019-09-24 05:43] LABS: ANION GAP 6 (5-19)
[2019-09-24] MEDS: HEPARIN SOD (PORCINE) 5,000 UNIT/ML 1 ML VIAL SUBCUT SCH ×3 (05:48→22:30)
[2019-09-24] MEDS: INSULIN LISPRO 100 UNIT/ML 3 ML VIAL SUBCUT SCH ×4 (08:32→22:30)
[2019-09-24] MEDS: METOPROLOL TARTRATE 100 MG TABLET PO SCH ×2 (09:47→22:30)
[2019-09-24] MEDS: METFORMIN HCL 500 MG TABLET PO SCH ×2 (09:47→17:07)
[2019-09-24] MEDS: HYDROCHLOROTHIAZIDE 25 MG TABLET PO SCH (09:48)
[2019-09-24] MEDS: GLIPIZIDE 5 MG TABLET PO SCH ×2 (09:48→17:07)
[2019-09-24] MEDS: POTASSIUM CHLORIDE 10 MEQ TABLET.ER PO SCH ×2 (09:48→17:07)
[2019-09-24] MEDS: DILTIAZEM HCL 120 MG CAP.SR.24H PO SCH ×2 (09:48→22:30)
[2019-09-24] MEDS: ASPIRIN 81 MG TABLET, CHEWABLE PO SCH (09:48)
[2019-09-24] MEDS: CEFTRIAXONE 2 GM/D5W RTU 2 GM/50 ML RTUPB IV SCH (09:48)
--- NOTE | 2019-09-24 12:54 | PDOC PROGRESS REPORT ---
Subjective Progress Note for:: 09/24/19 Subjective:: NOHELIA WAGONER is a 89 year old female past medical history of dementia, diabetes mellitus type 2, hypertension hyperlipidemia who [facility] due to fever and weakness. She was admitted for possible sepsis secondary to questionable right lung pneumonia versus UTI. Chest CT was pursued and did not show evidence of pneumonia. UA was consistent with UTI. Blood cultures and urine culture are growing gram-negative rods. 09/20: Upon encounter this morning, she appears more awake and conversant. She denies acute complaints. Denies chest pain or shortness of breath. 09/21: Patient went into A. fib with RVR in the 150s last night patient was started on Cardizem drip. Otherwise, she reports she continues to feel better upon encounter this morning. Denies chest pain or shortness of breath. She has converted to normal sinus rhythm. Will wean off Cardizem drip today. 09/22: No acute event overnight. Remains off Cardizem drip. Patient appears comfortable and denies acute complaints on encounter. She has a few episodes of going into the 130s and dipping down into the 60s. Heart rate is mostly controlled most of the time. Unable to get hold of any family member at this time. 09/23: No acute event overnight. Patient continues to improve. Denies acute complaints. She does have dementia per patient's sister. Patient is at her baseline. No episodes of sustained RVR overnight. Heart rate in the 60s. In light of her E. coli bacteremia from UTI, patient will need at least 7 days of IV antibiotics. 09/24: No acute issues. She is at her baseline and denies acute complaints. Remains rate-controlled. Will complete IV antibiotics on 09/26/2019. Reason For Visit: AFIB Physical Exam Vital Signs: Temp Pulse Resp BP Pulse Ox 98.3 F 65 18 155/72 H 96 09/24/19 11:28 09/24/19 11:28 09/24/19 11:28 09/24/19 11:28 09/24/19 11:28 Intake & Output 09/23/19 09/24/19 09/25/19 06:59 06:59 06:59 Intake Total 860 890 50 Output Total 400 Balance 460 890 50 Weight 121 lb 7.595 oz 119 lb 7.849 oz General appearance: PRESENT: no acute distress, well-developed, well-nourished Head exam: PRESENT: atraumatic, normocephalic Eye exam: PRESENT: conjunctiva pink, EOMI, PERRLA. ABSENT: scleral icterus Ear exam: PRESENT: normal external ear exam Mouth exam: PRESENT: moist, tongue midline Neck exam: ABSENT: carotid bruit, JVD, lymphadenopathy, thyromegaly Respiratory exam: PRESENT: clear to auscultation batsheva. ABSENT: rales, rhonchi, wheezes Cardiovascular exam: PRESENT: irregular rhythm. ABSENT: diastolic murmur, rubs, systolic murmur Pulses: PRESENT: normal dorsalis pedis pul GI/Abdominal exam: PRESENT: normal bowel sounds, soft. ABSENT: distended, guarding, mass, organolmegaly, rebound, tenderness Rectal exam: PRESENT: deferred Extremities exam: PRESENT: full ROM. ABSENT: calf tenderness, clubbing, pedal edema Neurological exam: PRESENT: alert, awake, CN II-XII grossly intact. ABSENT: motor sensory deficit Results Laboratory Results: 09/24/19 04:38 09/24/19 04:38 09/24/19 09/24/19 04:38 04:38 WBC 7.5 RBC 4.04 Hgb 11.5 L Hct 33.9 L MCV 84 MCH 28.4 MCHC 33.8 RDW 14.0 Plt Count 267 Seg Neutrophils % 56.7 Sodium 133.8 L Potassium 4.0 Chloride 100 Carbon Dioxide 28 Anion Gap 6 BUN 9 Creatinine 0.36 L Est GFR ( Amer) > 60 Glucose 163 H Calcium 8.2 L 09/19/19 09/20/19 09/20/19 06:06 20:45 20:45 Creatine Kinase 62 CK-MB (CK-2) 1.15 Troponin I 0.078 NT-Pro-B Natriuret Pep 1310 H 09/21/19 09/21/19 09/21/19 02:35 02:35 08:49 Creatine Kinase 34 24 L CK-MB (CK-2) 0.69 Troponin I 0.064 NT-Pro-B Natriuret Pep 09/21/19 08:49 Creatine Kinase CK-MB (CK-2) 0.58 Troponin I 0.038 NT-Pro-B Natriuret Pep Impressions: Chest X-Ray 09/19/19 06:26 IMPRESSION: Possible medial right upper lung opacity, if no old x-ray is available to document long-term stability would recommend follow-up chest CT. Chest CT 09/19/19 08:36 IMPRESSION: No acute findings in the chest. Assessment and Plan - Diagnosis (1) Sepsis Qualifiers: Sepsis type: sepsis due to unspecified organism Sepsis acute organ dysfunction status: unspecified Qualified Code(s): A41.9 - Sepsis, unspecified organism Is this a current diagnosis for this admission?: Yes Plan: Secondary to urinary tract infection. Continue IV Rocephin as she appears to be clinically improving on current antibiotic. Blood cultures and urine culture grew pansensitive E. coli. 09/23: In light of her E. coli bacteremia from UTI, patient will need at least 7 days of IV antibiotics. 09/24: Will complete IV antibiotics on 09/26/2019. (2) Atrial fibrillation with rapid ventricular response Is this a current diagnosis for this admission?: Yes Plan: 09/21: Converted to normal sinus rhythm. Discontinue Cardizem drip. Continue oral Lopressor. We will add p.o. Cardizem. 09/22: She has a few episodes of going into the 130s and dipping down into the 60s. Heart rate is mostly controlled most of the time. Not a good candidate for long-term anticoagulation. Continue p.o. Lopressor and Cardizem. 09/23: Switch cardizem to 120 mg CD q12. 09/24: Continue lopressor and PO cardizem. (3) UTI (urinary tract infection) Is this a current diagnosis for this admission?: Yes Plan: As per #1. (4) Lactic acidosis Is this a current diagnosis for this admission?: Yes Plan: Resolved. (5) Hypertension Is this a current diagnosis for this admission?: Yes Plan: Continue metoprolol and hydrochlorothiazide. (6) Diabetes mellitus type 2 in nonobese Is this a current diagnosis for this admission?: Yes Plan: Resumed glipizide and metformin. - Time Time Spent with patient: 25-34 minutes
[2019-09-24] MEDS: ATORVASTATIN CALCIUM 40 MG TABLET PO SCH (22:30)
[2019-09-24] MEDS: INSULIN GLARGINE,HUM.REC.ANLOG 1,000 UNIT/10 ML VIAL SUBCUT SCH (22:31)
[2019-09-25] MEDS: HEPARIN SOD (PORCINE) 5,000 UNIT/ML 1 ML VIAL SUBCUT SCH ×3 (05:21→21:18)
[2019-09-25] MEDS: METFORMIN HCL 500 MG TABLET PO SCH ×2 (08:38→16:45)
[2019-09-25] MEDS: INSULIN LISPRO 100 UNIT/ML 3 ML VIAL SUBCUT SCH ×4 (08:38→21:21)
[2019-09-25] MEDS: CEFTRIAXONE 2 GM/D5W RTU 2 GM/50 ML RTUPB IV SCH (09:21)
[2019-09-25] MEDS: METOPROLOL TARTRATE 100 MG TABLET PO SCH ×2 (09:23→21:17)
[2019-09-25] MEDS: HYDROCHLOROTHIAZIDE 25 MG TABLET PO SCH (09:23)
[2019-09-25] MEDS: GLIPIZIDE 5 MG TABLET PO SCH ×2 (09:23→17:04)
[2019-09-25] MEDS: DILTIAZEM HCL 120 MG CAP.SR.24H PO SCH ×2 (09:23→21:17)
[2019-09-25] MEDS: ASPIRIN 81 MG TABLET, CHEWABLE PO SCH (09:23)
[2019-09-25] MEDS: POTASSIUM CHLORIDE 10 MEQ TABLET.ER PO SCH ×2 (09:24→17:04)
--- NOTE | 2019-09-25 12:43 | PDOC PROGRESS REPORT ---
Subjective Progress Note for:: 09/25/19 Subjective:: NOHELIA WAGONER is a 89 year old female past medical history of dementia, diabetes mellitus type 2, hypertension hyperlipidemia who was [facility] from [facility] due to fever and weakness. She was admitted for possible sepsis secondary to questionable right lung pneumonia versus UTI. Chest CT was pursued and did not show evidence of pneumonia. UA was consistent with UTI. Blood cultures and urine culture are growing gram-negative rods. 09/20: Upon encounter this morning, she appears more awake and conversant. She denies acute complaints. Denies chest pain or shortness of breath. 09/21: Patient went into A. fib with RVR in the 150s last night patient was started on Cardizem drip. Otherwise, she reports she continues to feel better upon encounter this morning. Denies chest pain or shortness of breath. She has converted to normal sinus rhythm. Will wean off Cardizem drip today. 09/22: No acute event overnight. Remains off Cardizem drip. Patient appears comfortable and denies acute complaints on encounter. She has a few episodes of going into the 130s and dipping down into the 60s. Heart rate is mostly controlled most of the time. Unable to get hold of any family member at this time. 09/23: No acute event overnight. Patient continues to improve. Denies acute complaints. She does have dementia per patient's sister. Patient is at her baseline. No episodes of sustained RVR overnight. Heart rate in the 60s. In light of her E. coli bacteremia from UTI, patient will need at least 7 days of IV antibiotics. 22: She is at her baseline and denies acute complaints. Remains rate- controlled. Will complete IV antibiotics on 09/26/2019. 2/3: No acute issues. Patient is at her baseline. Denies any complaints. Will complete IV antibiotics tomorrow. Reason For Visit: AFIB Physical Exam Vital Signs: Temp Pulse Resp BP Pulse Ox 98.0 F 62 18 134/65 H 96 09/25/19 07:57 09/25/19 07:57 09/25/19 07:57 09/25/19 07:57 09/25/19 07:57 Intake & Output 09/24/19 09/25/19 09/26/19 06:59 06:59 06:59 Intake Total 890 970 50 Balance 890 970 50 Weight 119 lb 7.849 oz 117 lb 11.629 oz General appearance: PRESENT: no acute distress, well-developed, well-nourished Head exam: PRESENT: atraumatic, normocephalic Eye exam: PRESENT: conjunctiva pink, EOMI, PERRLA. ABSENT: scleral icterus Ear exam: PRESENT: normal external ear exam Mouth exam: PRESENT: moist, tongue midline Neck exam: ABSENT: carotid bruit, JVD, lymphadenopathy, thyromegaly Respiratory exam: PRESENT: clear to auscultation batsheva. ABSENT: rales, rhonchi, wheezes Cardiovascular exam: PRESENT: irregular rhythm. ABSENT: diastolic murmur Pulses: PRESENT: normal dorsalis pedis pul GI/Abdominal exam: PRESENT: normal bowel sounds, soft. ABSENT: distended, guarding, mass, organolmegaly, rebound, tenderness Rectal exam: PRESENT: deferred Neurological exam: PRESENT: alert, awake, oriented to person, CN II-XII grossly intact. ABSENT: motor sensory deficit Results Laboratory Results: 09/24/19 04:38 09/24/19 04:38 09/20/19 09:45 Blood Blood Culture - Final NO GROWTH IN 5 DAYS 09/20/19 09:27 Blood Blood Culture - Final NO GROWTH IN 5 DAYS 09/19/19 09/20/19 09/20/19 06:06 20:45 20:45 Creatine Kinase 62 CK-MB (CK-2) 1.15 Troponin I 0.078 NT-Pro-B Natriuret Pep 1310 H 09/21/19 09/21/19 09/21/19 02:35 02:35 08:49 Creatine Kinase 34 24 L CK-MB (CK-2) 0.69 Troponin I 0.064 NT-Pro-B Natriuret Pep 09/21/19 08:49 Creatine Kinase CK-MB (CK-2) 0.58 Troponin I 0.038 NT-Pro-B Natriuret Pep Impressions: Chest X-Ray 09/19/19 06:26 IMPRESSION: Possible medial right upper lung opacity, if no old x-ray is available to document long-term stability would recommend follow-up chest CT. Chest CT 09/19/19 08:36 IMPRESSION: No acute findings in the chest. Assessment and Plan - Diagnosis (1) Sepsis Qualifiers: Sepsis type: sepsis due to unspecified organism Sepsis acute organ dysfunction status: unspecified Qualified Code(s): A41.9 - Sepsis, unspecified organism Is this a current diagnosis for this admission?: Yes Plan: Secondary to urinary tract infection. Continue IV Rocephin as she appears to be clinically improving on current antibiotic. Blood cultures and urine culture grew pansensitive E. coli. 09/23: In light of her E. coli bacteremia from UTI, patient will need at least 7 days of IV antibiotics. 09/25: Will complete IV antibiotics tomorrow. (2) Atrial fibrillation with rapid ventricular response Is this a current diagnosis for this admission?: Yes Plan: 09/21: Converted to normal sinus rhythm. Discontinue Cardizem drip. Continue oral Lopressor. We will add p.o. Cardizem. 09/22: She has a few episodes of going into the 130s and dipping down into the 60s. Heart rate is mostly controlled most of the time. Not a good candidate for long-term anticoagulation. Continue p.o. Lopressor and Cardizem. 09/23: Switch cardizem to 120 mg CD q12. 09/24: Continue lopressor and PO cardizem. (3) UTI (urinary tract infection) Is this a current diagnosis for this admission?: Yes Plan: As per #1. (4) Lactic acidosis Is this a current diagnosis for this admission?: Yes Plan: Resolved. (5) Hypertension Is this a current diagnosis for this admission?: Yes Plan: Continue metoprolol and hydrochlorothiazide. (6) Diabetes mellitus type 2 in nonobese Is this a current diagnosis for this admission?: Yes Plan: Resumed glipizide and metformin. - Time Time Spent with patient: 25-34 minutes
[2019-09-25] MEDS: INSULIN GLARGINE,HUM.REC.ANLOG 1,000 UNIT/10 ML VIAL SUBCUT SCH (21:17)
[2019-09-25] MEDS: ATORVASTATIN CALCIUM 40 MG TABLET PO SCH (21:17)
[2019-09-26] MEDS: HEPARIN SOD (PORCINE) 5,000 UNIT/ML 1 ML VIAL SUBCUT SCH ×3 (05:22→21:52)
[2019-09-26 05:36] LABS: ABSOLUTE BASOPHILS # (AUTO) 0.1 10^3/uL (0.0-0.2); ABSOLUTE EOSINOPHILS # (AUTO) 0.2 10^3/uL (0.0-0.6); ABSOLUTE LYMPHOCYTES (AUTO) 2.1 10^3/uL (0.5-4.7); ABSOLUTE MONOCYTES (AUTO) 0.9 10^3/uL (0.1-1.4); ABSOLUTE NEUT (AUTO) 5.3 10^3/uL (1.7-8.2); BASOPHILS % (AUTO) 1.2 % (0-2); EOSINOPHILS % (AUTO) 2.3 % (0-6); HEMATOCRIT 34.7 % (36.0-47.0); HEMOGLOBIN 11.7 g/dL (12.0-15.5); LYMPHOCYTES % (AUTO) 24.2 % (13-45); MEAN CORPUSCULAR HEMOGLOBIN 28.6 pg (27.0-33.4); MEAN CORPUSCULAR HGB CONC 33.8 g/dL (32.0-36.0); MEAN CORPUSCULAR VOLUME 85 fl (80-97); MONOCYTES % (AUTO) 10.5 % (3-13); PLATELET COUNT 412 10^3/uL (150-450); RED BLOOD COUNT 4.09 10^6/uL (3.72-5.28); RED CELL DISTRIBUTION WIDTH 14.2 % (11.5-14.0); SEGMENTED NEUTROPHILS % (AUTO) 61.8 % (42-78); TOTAL CELLS COUNTED % (AUTO) 100 %; WHITE BLOOD COUNT 8.6 10^3/uL (4.0-10.5)
[2019-09-26 05:46] LABS: ANION GAP 9 (5-19); BLOOD UREA NITROGEN 11 mg/dL (7-20); CALCIUM 8.6 mg/dL (8.4-10.2); CARBON DIOXIDE 26 mmol/L (22-30); CHLORIDE 100 mmol/L (98-107); GLUCOSE 188 mg/dL (75-110); POTASSIUM 4.6 mmol/L (3.6-5.0)
[2019-09-26] MEDS: METFORMIN HCL 500 MG TABLET PO SCH ×2 (08:14→16:58)
[2019-09-26] MEDS: INSULIN LISPRO 100 UNIT/ML 3 ML VIAL SUBCUT SCH ×4 (08:15→21:53)
[2019-09-26] MEDS: HYDROCHLOROTHIAZIDE 25 MG TABLET PO SCH (09:30)
[2019-09-26] MEDS: ASPIRIN 81 MG TABLET, CHEWABLE PO SCH (09:30)
[2019-09-26] MEDS: GLIPIZIDE 5 MG TABLET PO SCH ×2 (09:30→17:00)
[2019-09-26] MEDS: METOPROLOL TARTRATE 100 MG TABLET PO SCH ×2 (09:30→21:49)
[2019-09-26] MEDS: POTASSIUM CHLORIDE 10 MEQ TABLET.ER PO SCH ×2 (09:30→17:00)
[2019-09-26] MEDS: DILTIAZEM HCL 120 MG CAP.SR.24H PO SCH ×2 (09:30→22:59)
[2019-09-26] MEDS: CEFTRIAXONE 2 GM/D5W RTU 2 GM/50 ML RTUPB IV SCH (09:31)
--- NOTE | 2019-09-26 11:00 | PDOC PROGRESS REPORT ---
Subjective Progress Note for:: 09/26/19 Reason For Visit: AFIB 09/26/2019 [facility] Physical Exam Vital Signs: Temp Pulse Resp BP Pulse Ox 98.0 F 62 16 137/67 H 96 09/26/19 07:30 09/26/19 07:30 09/26/19 07:30 09/26/19 07:30 09/26/19 07:30 Intake & Output 09/25/19 09/26/19 09/27/19 06:59 06:59 06:59 Intake Total 970 530 50 Balance 970 530 50 Weight 53.4 kg 52.7 kg General appearance: PRESENT: no acute distress, other - Patient vocalizes no complaints Respiratory exam: PRESENT: clear to auscultation batsheva. ABSENT: rales, rhonchi, wheezes Cardiovascular exam: PRESENT: RRR. ABSENT: diastolic murmur, rubs, systolic murmur Neurological exam: PRESENT: alert, awake, oriented to person, oriented to place, oriented to time, oriented to situation, CN II-XII grossly intact. ABSENT: motor sensory deficit Psychiatric exam: PRESENT: appropriate affect, normal mood. ABSENT: homicidal ideation, suicidal ideation Results Laboratory Results: 09/26/19 04:38 09/26/19 04:38 09/26/19 09/26/19 04:38 04:38 WBC 8.6 RBC 4.09 Hgb 11.7 L Hct 34.7 L MCV 85 MCH 28.6 MCHC 33.8 RDW 14.2 H Plt Count 412 Seg Neutrophils % 61.8 Sodium 134.5 L Potassium 4.6 Chloride 100 Carbon Dioxide 26 Anion Gap 9 BUN 11 Creatinine 0.44 L Est GFR ( Amer) > 60 Glucose 188 H Calcium 8.6 09/20/19 09:45 Blood Blood Culture - Final NO GROWTH IN 5 DAYS 09/20/19 09:27 Blood Blood Culture - Final NO GROWTH IN 5 DAYS 09/19/19 09/20/19 09/20/19 06:06 20:45 20:45 Creatine Kinase 62 CK-MB (CK-2) 1.15 Troponin I 0.078 NT-Pro-B Natriuret Pep 1310 H 09/21/19 09/21/19 09/21/19 02:35 02:35 08:49 Creatine Kinase 34 24 L CK-MB (CK-2) 0.69 Troponin I 0.064 NT-Pro-B Natriuret Pep 09/21/19 08:49 Creatine Kinase CK-MB (CK-2) 0.58 Troponin I 0.038 NT-Pro-B Natriuret Pep Impressions: Chest X-Ray 09/19/19 06:26 IMPRESSION: Possible medial right upper lung opacity, if no old x-ray is available to document long-term stability would recommend follow-up chest CT. Chest CT 09/19/19 08:36 IMPRESSION: No acute findings in the chest. Assessment and Plan - Diagnosis (1) Atrial fibrillation with rapid ventricular response Is this a current diagnosis for this admission?: Yes (2) Diabetes mellitus type 2 in nonobese Is this a current diagnosis for this admission?: Yes (3) Hypertension Is this a current diagnosis for this admission?: Yes (4) Sepsis Qualifiers: Sepsis type: sepsis due to unspecified organism Sepsis acute organ dysfunction status: unspecified Qualified Code(s): A41.9 - Sepsis, unspecified organism Is this a current diagnosis for this admission?: Yes (5) UTI (urinary tract infection) Is this a current diagnosis for this admission?: Yes - Plan Summary Summary: 09/26/2019 [facility]mitted from [facility] with fever and weakness with the presumption of a UTI and sepsis Patient will complete her course of antibiotics today CT scan of the chest on admission was negative for any pneumonia Patient had a UTI that grew out E. coli. Cultures as well grew out E. coli Patient's heart rate appears to be stable and 55 and 60, is afebrile 97 8, blood pressures are stable 143/61 Anticipate discharge back to jail tomorrow. Patient is sitting up in bed and states "I feel good" - Time Time Spent with patient: 15-24 minutes
[2019-09-26] MEDS: ATORVASTATIN CALCIUM 40 MG TABLET PO SCH (21:49)
[2019-09-26] MEDS: INSULIN GLARGINE,HUM.REC.ANLOG 1,000 UNIT/10 ML VIAL SUBCUT SCH (22:59)
[2019-09-27] MEDS: HEPARIN SOD (PORCINE) 5,000 UNIT/ML 1 ML VIAL SUBCUT SCH ×2 (06:15→14:09)
[2019-09-27] MEDS: INSULIN LISPRO 100 UNIT/ML 3 ML VIAL SUBCUT SCH ×2 (09:02→12:16)
[2019-09-27] MEDS: HYDROCHLOROTHIAZIDE 25 MG TABLET PO SCH (09:07)
[2019-09-27] MEDS: METOPROLOL TARTRATE 100 MG TABLET PO SCH (09:07)
[2019-09-27] MEDS: METFORMIN HCL 500 MG TABLET PO SCH ×2 (09:07→15:05)
[2019-09-27] MEDS: POTASSIUM CHLORIDE 10 MEQ TABLET.ER PO SCH (09:07)
[2019-09-27] MEDS: CEFTRIAXONE 2 GM/D5W RTU 2 GM/50 ML RTUPB IV SCH (09:08)
[2019-09-27] MEDS: ASPIRIN 81 MG TABLET, CHEWABLE PO SCH (09:08)
[2019-09-27] MEDS: DILTIAZEM HCL 120 MG CAP.SR.24H PO SCH (09:08)
[2019-09-27] MEDS: GLIPIZIDE 5 MG TABLET PO SCH (09:08)
[2019-09-27 12:09] VITALS: BP 113/75
--- NOTE | 2019-09-27 13:25 | PDOC TRANSFER SUMMARY ---
Impression - Admit/DC Date/PCP Admission Date/Primary Care Provider: 09/19/19 08:18 WILLA ALDRICH MD Discharge Date: 09/27/19 - Discharge Diagnosis (1) Atrial fibrillation with rapid ventricular response Is this a current diagnosis for this admission?: Yes (2) Diabetes mellitus type 2 in nonobese Is this a current diagnosis for this admission?: Yes (3) Hypertension Is this a current diagnosis for this admission?: Yes (4) Sepsis Is this a current diagnosis for this admission?: Yes (5) UTI (urinary tract infection) Is this a current diagnosis for this admission?: Yes - Assessment Summary: 09/26/2019 Admitted from [facility] with fever and weakness with the presumption of a UTI and sepsis Patient will complete her course of antibiotics today CT scan of the chest on admission was negative for any pneumonia Patient had a UTI that grew out E. coli. Cultures as well grew out E. coli Patient's heart rate appears to be stable and 55 and 60, is afebrile 97 8, blood pressures are stable 143/61 Anticipate discharge back to [facility] tomorrow. Patient is sitting up in bed and states "I feel good" 09/27/2019 Temperature 97.8, pulse between 50 and 60, blood pressure 133/56, O2 sat 93% on room air. Patient's labs appear normal today, white count 8600 hemoglobin 11.7. patient no longer needs any antibiotics. Glucose 150 up to 210 She has no indication of sepsis, does not complain of any weakness and has no fevers - Additional Information Resuscitation Status: Do Not Resuscitate Discharge Diet: As Tolerated Discharge Activity: Activity As Tolerated Referrals: WILLA ALDRICH MD [Primary Care Provider] - Follow up as needed Prescriptions: Diltiazem HCl [Cardizem Cd 120 mg Capsule] 120 mg PO Q12 30 Days #60 cap.sr.24h Insulin Glargine,Hum.rec.anlog [Lantus Insulin 100 Unit/1 ml 10 ml] 10 unit SUBCUT QHS 30 Days #1 unit Home Medications: Aspirin [Aspirin 81 mg Chewable Tablet] 81 mg PO DAILY 09/19/19 Atorvastatin Calcium [Lipitor 40 mg Tablet] 40 mg PO QHS 09/19/19 Glipizide [Glucotrol 5 mg Tablet] 5 mg PO BID 09/19/19 Hydrochlorothiazide [Hydrodiuril 25 mg Tablet] 25 mg PO DAILY 09/19/19 Metformin HCl [Metformin HCl ER] 500 mg PO QPM 09/19/19 Metoprolol Tartrate [Lopressor 100 mg Tablet] 100 mg PO Q12 09/19/19 Potassium Chloride [Klor-Con 10 Meq Tablet ER] 20 meq PO BID 09/19/19 Aspirin [Aspirin 81 mg Chewable Tablet] 81 mg PO DAILY tab.chew 09/27/19 Diltiazem HCl [Cardizem Cd 120 mg Capsule] 120 mg PO Q12 30 Days #60 cap.sr.24h 09/27/19 Insulin Glargine,Hum.rec.anlog [Lantus Insulin 100 Unit/1 ml 10 ml] 10 unit SUBCUT QHS 30 Days #1 unit 09/27/19 History of Present Illiness History of Present Illness: NOHELIA WAGONER is a 89 year old female Physical Exam Vital Signs: Temp Pulse Resp BP Pulse Ox 98.1 F 57 L 18 113/75 97 09/27/19 11:53 09/27/19 11:53 09/27/19 11:53 09/27/19 11:53 09/27/19 11:53 Intake & Output 09/26/19 09/27/19 09/28/19 06:59 06:59 06:59 Intake Total 530 707 50 Balance 530 707 50 Weight 52.7 kg 53.3 kg Results Laboratory Results: WBC 8.6 10^3/uL (4.0-10.5) 09/26/19 04:38 RBC 4.09 10^6/uL (3.72-5.28) 09/26/19 04:38 Hgb 11.7 g/dL (12.0-15.5) L 09/26/19 04:38 Hct 34.7 % (36.0-47.0) L 09/26/19 04:38 MCV 85 fl (80-97) 09/26/19 04:38 MCH 28.6 pg (27.0-33.4) 09/26/19 04:38 MCHC 33.8 g/dL (32.0-36.0) 09/26/19 04:38 RDW 14.2 % (11.5-14.0) H 09/26/19 04:38 Plt Count 412 10^3/uL (150-450) 09/26/19 04:38 Lymph % (Auto) 24.2 % (13-45) 09/26/19 04:38 [place] % (Auto) 10.5 % (3-13) 09/26/19 04:38 Eos % (Auto) 2.3 % (0-6) 09/26/19 04:38 Baso % (Auto) 1.2 % (0-2) 09/26/19 04:38 Absolute Neuts (auto) 5.3 10^3/uL (1.7-8.2) 09/26/19 04:38 Absolute Lymphs (auto) 2.1 10^3/uL (0.5-4.7) 09/26/19 04:38 Absolute Monos (auto) 0.9 10^3/uL (0.1-1.4) 09/26/19 04:38 Absolute Eos (auto) 0.2 10^3/uL (0.0-0.6) 09/26/19 04:38 Absolute Basos (auto) 0.1 10^3/uL (0.0-0.2) 09/26/19 04:38 Total Counted 100 09/20/19 07:52 Seg Neutrophils % 61.8 % (42-78) 09/26/19 04:38 Seg Neuts % (Manual) 81 % (42-78) H 09/20/19 07:52 Band Neutrophils % 6 % (3-5) H 09/20/19 07:52 Lymphocytes % (Manual) 3 % (13-45) L 09/20/19 07:52 Atypical Lymphs % 5 % (0) 09/20/19 07:52 Monocytes % (Manual) 5 % (3-13) 09/20/19 07:52 Eosinophils % (Manual) 0 % (0-6) 09/20/19 07:52 Basophils % (Manual) 0 % (0-2) 09/20/19 07:52 Abs Neuts (Manual) 11.4 10^3/uL (1.7-8.2) H 09/20/19 07:52 Abs Lymphs (Manual) 1.0 10^3/uL (0.5-4.7) 09/20/19 07:52 Abs Monocytes (Manual) 0.7 10^3/uL (0.1-1.4) 09/20/19 07:52 Absolute Eos (Manual) 0.0 10^3/uL (0.0-0.6) 09/20/19 07:52 Abs Basophils (Manual) 0.0 10^3/uL (0.0-0.2) 09/20/19 07:52 Platelet Comment DECREASED 09/20/19 07:52 Anisocytosis SLIGHT 09/20/19 07:52 Ovalocytes SLIGHT 09/20/19 07:52 Abelino Cells SLIGHT 09/20/19 07:52 Schistocytes SLIGHT 09/20/19 07:52 PT 13.8 SEC (11.4-15.4) 09/19/19 06:06 INR 1.06 09/19/19 06:06 VBG pH 7.48 (7.30-7.42) H 09/19/19 06:22 VBG pCO2 36.0 mmHg (35-63) 09/19/19 06:22 VBG HCO3 26.0 mmol/L (20-32) 09/19/19 06:22 VBG Base Excess 2.6 mmol/L 09/19/19 06:22 Sodium 134.5 mmol/L (137-145) L 09/26/19 04:38 Potassium 4.6 mmol/L (3.6-5.0) 09/26/19 04:38 Chloride 100 mmol/L (98-107) 09/26/19 04:38 Carbon Dioxide 26 mmol/L (22-30) 09/26/19 04:38 Anion Gap 9 (5-19) 09/26/19 04:38 BUN 11 mg/dL (7-20) 09/26/19 04:38 Creatinine 0.44 mg/dL (0.52-1.25) L 09/26/19 04:38 Est GFR ( Amer) > 60 (>60) 09/26/19 04:38 Est GFR (MDRD) Non-Af > 60 (>60) 09/26/19 04:38 Glucose 188 mg/dL (75-110) H 09/26/19 04:38 POC Glucose 193 mg/dL (70-110) H 09/27/19 12:10 Hemoglobin A1c % 9.7 % (4.7-6.0) H 09/19/19 06:06 Lactic Acid 0.8 mmol/L (0.7-2.1) 09/20/19 07:52 Calcium 8.6 mg/dL (8.4-10.2) 09/26/19 04:38 Magnesium 2.0 mg/dL (1.6-2.3) 09/22/19 10:30 Total Bilirubin 2.1 mg/dL (0.2-1.3) H 09/19/19 06:06 Direct Bilirubin 0.3 mg/dL (0.0-0.4) 09/19/19 06:06 Neonat Total Bilirubin Not Reportable 09/19/19 06:06 Neonat Direct Bilirubin Not Reportable 09/19/19 06:06 Neonat Indirect Bili Not Reportable 09/19/19 06:06 AST 75 U/L (14-36) H 09/19/19 06:06 ALT 70 U/L (<35) 09/19/19 06:06 Alkaline Phosphatase 144 U/L (38-126) H 09/19/19 06:06 Creatine Kinase 24 U/L (30-135) L 09/21/19 08:49 CK-MB (CK-2) 0.58 ng/mL (<4.55) 09/21/19 08:49 Troponin I 0.038 ng/mL 09/21/19 08:49 NT-Pro-B Natriuret Pep 1310 pg/mL (<450) H 09/19/19 06:06 Total Protein 6.4 g/dL (6.3-8.2) 09/19/19 06:06 Albumin 3.4 g/dL (3.5-5.0) L 09/19/19 06:06 TSH 1.27 uIU/mL (0.47-4.68) 09/21/19 08:49 Free T4 1.59 ng/dL (0.78-2.19) 09/21/19 08:49 Free T3 pg/mL 1.77 pg/mL (2.77-5.27) L 09/21/19 08:49 Urine Color KING 09/19/19 06:20 Urine Appearance SLIGHTLY-CLOUDY 09/19/19 06:20 Urine pH 6.0 (5.0-9.0) 09/19/19 06:20 Ur Specific [place] 1.014 09/19/19 06:20 Urine Protein 100 mg/dL (NEGATIVE) H 09/19/19 06:20 Urine Glucose (UA) >=500 mg/dL (NEGATIVE) H 09/19/19 06:20 Urine Ketones NEGATIVE mg/dL (NEGATIVE) 09/19/19 06:20 Urine Blood LARGE (NEGATIVE) H 09/19/19 06:20 Urine Nitrite NEGATIVE (NEGATIVE) 09/19/19 06:20 Urine Bilirubin NEGATIVE (NEGATIVE) 09/19/19 06:20 Urine Urobilinogen 4.0 mg/dL (<2.0) H 09/19/19 06:20 Ur Leukocyte Esterase NEGATIVE (NEGATIVE) 09/19/19 06:20 Urine WBC (Auto) 9 /HPF 09/19/19 06:20 Urine RBC (Auto) 10 /HPF 09/19/19 06:20 Urine Bacteria (Auto) 3+ /HPF 09/19/19 06:20 Squamous Epi Cells Auto <1 /HPF 09/19/19 06:20 Urine Mucus (Auto) RARE /LPF 09/19/19 06:20 Urine Ascorbic Acid NEGATIVE (NEGATIVE) 09/19/19 06:20 Influenza A (Rapid) NEGATIVE (NEGATIVE) 09/19/19 06:45 Influenza B (Rapid) NEGATIVE (NEGATIVE) 09/19/19 06:45 09/19/19 09/20/19 09/21/19 06:06 20:45 02:35 CK-MB (CK-2) 1.15 0.69 Troponin I 0.078 0.064 NT-Pro-B Natriuret Pep 1310 H 09/21/19 08:49 CK-MB (CK-2) 0.58 Troponin I 0.038 NT-Pro-B Natriuret Pep Impressions: Chest X-Ray 09/19/19 06:26 IMPRESSION: Possible medial right upper lung opacity, if no old x-ray is available to document long-term stability would recommend follow-up chest CT. Chest CT 09/19/19 08:36 IMPRESSION: No acute findings in the chest. Stroke Is this a Stroke Patient?: No Acute Heart Failure - Is this a Heart Failure Patient?: No
== END 2019-09-27 15:21 | DRG 871 ==
LOC: ER 05:31 → EH 08:18 → 4W 20:40 → 3N 09-20 20:38
PROVIDERS: ADMIT Internal Medicine; ATTEND Internal Medicine
DX: A41.9 Sepsis, unspecified organism (principal); J18.9 Pneumonia, unspecified organism; N39.0 Urinary tract infection, site not specified; E87.2 Acidosis; I48.0 Paroxysmal atrial fibrillation; E78.00 Pure hypercholesterolemia, unspecified; I10 Essential (primary) hypertension; E11.8 Type 2 diabetes mellitus with unspecified complications; F03.90 Unspecified dementia, unspecified severity, without behavioral disturbance, psychotic disturbance, mood disturbance, and anxiety; B96.20 Unspecified Escherichia coli [E. coli] as the cause of diseases classified elsewhere; Z79.84 Long term (current) use of oral hypoglycemic drugs; Z79.82 Long term (current) use of aspirin; Z79.899 Other long term (current) drug therapy
CPT/HCPCS: 36415; 71045; 71250; 80048; 80053; 81001; 82550; 82553; 82803; 82962; 83036; 83605; 83735; 83880; 84439; 84443; 84481; 84484; 85025; 85610; 87040; 87077; 87086; 87088; 87150; 87186; 87804; 93005; 93010; 96360; 99285; J0692; J0696; J1335; J1644; J1815; J3490; J7030; J7040